=== PATIENT | male | born 1935 | race Caucasian/White ===

== ENCOUNTER → 2023-11-29 08:15 | Outpatient (REF) | payer MEDICARE, OTHER, SELFPAY | LOC: DHCBS HW 08:15 | PROVIDERS: ATTENDING PHYSICIAN Nuclear Medicine Nuclear Cardiology; FAMILY PHYSICIAN Internal Medicine | DX: I50.33 Acute on chronic diastolic (congestive) heart failure (principal); I35.0 Nonrheumatic aortic (valve) stenosis | CPT/HCPCS: 93306 ==

== ENCOUNTER 2024-02-02 23:24 | Observation (INO) | payer MEDICARE, OTHER, SELFPAY ==
[2024-02-02] VITALS (11 sets, daily range): BP systolic 128–185; BP diastolic 58–77; PULSE 61–78; BMI 31.7
[2024-02-02 17:38] LABS: % Basophils 0.7 % (0-2); % Eosinophils 1.7 % (0-6); % Immature Granulocytes 0.2 % (0-0.5); % Lymphocytes 17.7 % (20.5-51.1); % Monocytes 7.5 % (1.7-9.3); % Neutrophils 72.2 % (42.2-75.2); Absolute Basophils 0.1 10^3/uL (0-0.2); Absolute Eosinophils 0.2 10^3/uL (0-0.7); Absolute Lymphocytes 1.8 10^3/uL (1.2-3.4); Absolute Monocytes 0.8 10^3/uL (0.1-0.6); Absolute Neutrophils 7.4 10^3/uL (1.4-6.5); Hematocrit 39.5 % (39.0-52.0); Hemoglobin 11.7 g/dL (13.0-18.0); Mean Corp Hgb Conc. 29.6 g/dL (33.0-37.0); Mean Corpuscular Hgb 22.7 pg (27.0-31.0); Mean Corpuscular Volume 76.7 fL (80.0-94.0); Mean Platelet Volume 9.7 fL (7.4-10.4); Nucleated Red Blood Cells % 0 % (-); Platelet Count 294 10^3/uL (130-400); Red Blood Cell Count 5.15 10^6/uL (4.70-6.10); Red Cell Dist. Width 16.3 % (11.5-14.5); White Blood Cell Count 10.3 10^3/uL (4.8-10.8)
--- NOTE | 2024-02-02 17:45 | ED.GENMED ---
History of Present Illness
General
Chief Complaint: Fainting/Passed Out
Source: patient and family (Daughter and at the bedside)
Exam Limitations: none
Time Seen by Provider: 02/02/24 16:57
Nursing documentation reviewed up to this point in time: agreed with
Travel History
Have you had any contact with someone who has COVID-19?: No
Do you have any symptoms of coronavirus? Fever > 100 degrees, chills, cough, shortness of breath, sore throat, loss of taste or smell, muscle aches, or headache?: No
History of Present Illness
History of Present Illness:
Pleasant 88-year-old male that presents after fall that occurred at 2 AM. Patient was getting up to go to the bathroom when he fell. He is on Eliquis. He states that he has not missed a dose. He denies hitting his head or having loss of
consciousness. He landed on his left hip and his right shoulder. He was able to ambulate immediately after the fall. He went back to sleep. After awakening he started to develop pain in his left hip and right shoulder. He states that this pain
progressed throughout the day. He currently does not feel that he can ambulate. He was brought in by ambulance for evaluation. Patient denies fever, chills, nausea or vomiting. Reports no chest pain or shortness of breath. Patient is on Eliquis
for atrial fibrillation. Patient lives in a [facility] with his . They reside in a [place] and [place] community but there is no medical assistance at the [facility]. Patient wears oxygen at night. While in the emergency department he is using
oxygen. He was 88% on room air.
Past History
Past History
ED Past Medical History: Arrthythmia, Cancer, HTN, Hypercholesterolemia, IDDM and Other
ED Past Surgical History: Orthopedic (Hip replacement, knee replacement) and Urological (Cystoscopy for bladder cancer removal)
Social History
Tobacco: Non-smoker
Alcohol: None
Personal:
Living: with family
Employment: Retired
Family History
Family History: Other (Noncontributory)
Review of Systems
Review of Systems
Allergies reviewed?: Yes
Other source history: family
All Other Systems: ROS reviewed and negative except as documented in HPI and ROS
Constitutional: Reports no symptoms
EENT: Reports no symptoms
Respiratory: Reports no symptoms
Cardiac: Reports no symptoms
ABD/GI: Reports no symptoms
: Reports no symptoms
Musculoskeletal: Reports joint swelling, muscle pain, muscle stiffness and neck pain
Skin: Reports no symptoms
Neurological: Reports weakness; Denies dizzy or headache
Endocrine: Reports no symptoms
Hematologic/Lymphatic: Reports no symptoms
Psychiatric: Reports anxiety
Phy Exam
General Physical Exam
General Presentation: well appearing and mild distress
General age: appears stated age
General Skin: warm and dry
General Habitus: elderly
General Mental: alert and usual mental status
General Hydration: appears well hydrated
Cardiovascular Exam
Cardiovascular Exam: irregularly irregular
Pulmonary Exam
Pulmonary Exam: lungs clear and no respiratory distress
Gastrointestinal Exam
Gastrointestinal Exam: normal bowel sounds, non tender, no organomegaly and non distended
Neurological Exam
Neurological Exam: alert and oriented x3
Musculoskeletal Exam
Musculoskeletal Exam: full ROM, edema (1+ edema bilateral lower extremities) and neuro vasc intact
Skin Exam
Skin Exam: normal color and warm/dry
Psychiatric Exam
Psychiatric Exam: normal mood/affect
Course
Orders/Labs/Results
Orders:
Orders
02/02/24 16:45
ECG [Electrocardiogram (*1)] Urgent
Reason for Study: Syncope
EKG- Treatment ONCE
02/02/24 17:08
Cervical Spine 4 or 5 Vw [CR Cervical Spine 4 Or 5 Vw] Urgent
Comment:
Reason For Exam: fall
Hip, Left 2-3 Views [CR Hip - LT w/wo Pel 2-3 Vw*] Urgent
Comment:
Reason For Exam: fall
Include a pelvis x-ray?: Yes
Shoulder, Right 2 Views [CR Shoulder - Right Min 2 View] Urgent
Comment:
Reason For Exam: fall
02/02/24 17:09
CT Head W/o Iv Contrast Urgent
Comment:
Reason For Exam: fall on eliquis
02/02/24 17:33
Complete Blood Count/With Diff Urgent
Comprehensive Metabolic Panel Urgent
Prothrombin Time Urgent
02/02/24 19:15
0.9% Sodium Chloride 1000 ml [Nss] 1,000 ml IV BOLUS
02/02/24 20:53
Urinalysis Reflex To Culture Urgent
Date Specimen was Collected: 02/02/24
Time Specimen was Collected: 20:52
Urine Microscopic Reflex Cult Urgent
02/02/24 21:59
Orthostatic VS- Treatment ONCE
Abnormal Lab Results
02/02/24 02/02/24
17:33 20:53
Hgb 11.7 L g/dL
(13.0-18.0)
MCV 76.7 L fL
(80.0-94.0)
MCH 22.7 L pg
(27.0-31.0)
MCHC 29.6 L g/dL
(33.0-37.0)
RDW 16.3 H %
(11.5-14.5)
Absolute Neuts (auto) 7.4 H 10^3/uL
(1.4-6.5)
Absolute Monos (auto) 0.8 H 10^3/uL
(0.1-0.6)
Lymphocytes % 17.7 L %
(20.5-51.1)
PT 15.3 H Sec
(11.4-14.6)
Chloride 96 L mmol/L
(98-107)
Carbon Dioxide 33 H mmol/L
(22-30)
BUN 29 H mg/dl
(9-20)
Glucose 127 H mg/dl
(70-99)
Ur Occult Blood Reflex Trace A
(Negative)
Urine Bilirubin 1+ A
(Negative)
02/02/24 17:33
02/02/24 17:33
Vital Signs
Initial and Last Documented VS:
Initial Vital Signs
Temp Pulse Resp BP Pulse Ox
98.5 F 65 20 160/67 88
02/02/24 16:42 02/02/24 16:42 02/02/24 16:42 02/02/24 16:42 02/02/24 16:42
Last Documented Vital Signs
Temp Pulse Resp BP Pulse Ox
98.5 F 65 20 164/63 96
02/02/24 16:42 02/02/24 16:42 02/02/24 16:42 02/02/24 21:00 02/02/24 21:30
*Critical Care Note
Total Time (30-74mins, 75-104mins- exclusive of procedures): Not Applicable
Patient Management
Social determinants of health affecting care: Strong social support
Discussion with other providers: Hospitalist
Update Note
Update Note:
Vital signs are stable. Patient not hypoxic
Nursing note reviewed. I agree with nursing documentation up to this point in time.
Home Meds and allergies reviewed.
NUMBER AND COMPLEXITY OF PROBLEMS ADDRESSED AT THE ENCOUNTER
� Chronic conditions affecting care: Memory loss, hypertension, hyperlipidemia, oxygen dependent at night, frequent urination requiring multiple trips to the bathroom, UTIs, impaired vision
� Acute Exacerbation and/or Progression of Chronic Illness:
� Differential Diagnosis includes: Musculoskeletal pain, syncope, hip fracture, shoulder fracture
AMOUNT AND/OR COMPLEXITY OF DATA TO BE REVIEWED AND ANALYZED
I performed an independent evaluation of the following and my interpretation is:
EKG: EKG shows normal sinus rhythm rate of 62 with right bundle branch block present. When compared previous EKG dated September 24, 2022, he is now in sinus rhythm.
CT:
X-rays:
Ultrasound:
Laboratory Studies:
Other:
Review of other/old records:
Clinical information was obtained by an independent historian:
Prescriptions/Medications Considered but not given:
Further testing considered but not performed:
RISK OF COMPLICATIONS AND/OR MORBIDITY OR MORTALITY OF PATIENT MANAGEMENT
Social determinants of health affecting care: Good Social Support
Discussion with other providers:
Escalation of care including admission/observation vs risk of discharge considered:
CRITICAL CARE NOTE:
Total Time (exclusive of procedures):
Update:
ED Attending Note
-
Portions of this chart may have been created with voice recognition software.� Occasional wrong word or��sound alike� substitutions may have occurred due to the inherent limitations of voice recognition software.
Discharge Plan
Departure
Patient Disposition: Admit
Date of Disposition: 02/02/24
Time of Disposition: 22:19
Presentation/result/management discussed w/ accepting MD/DO: Hospitalist
Condition: Fair
Discharge Problem:
Syncope and collapse, Weakness, Acute dehydration
Prescriptions:
No Action
levothyroxine 175 MCG tablet
175 mcg PO DAILY
ergocalciferol (vitamin D2) 2,000 UNIT tablet
2,000 unit PO .2TIMES A WEEK
Patient Comments:
pt takes twice week
lisinopril 5 MG tablet
5 mg PO DAILY Qty: 30 0RF
amlodipine 5 MG tablet
5 mg PO QPM
tamsulosin 0.4 MG capsule
0.4 mg PO DAILY
hydrochlorothiazide [Microzide] 12.5 MG capsule
12.5 mg PO DAILY
Lidocaine Patch
1 patch topical PRN PRN (Reason: back pain)
Patient Comments:
patient unable to state strength of patch
metoprolol succinate 50 MG tablet extended release 24 hr
50 mg PO DAILY
Myrbetriq 25 MG tablet extended release 24 hr
25 mg PO DAILY
Eliquis 2.5 MG tablet
2.5 mg PO BID Qty: 60 0RF
amiodarone
200 mg PO DAILY
Crestor
20 mg PO DAILY
ipratropium-albuterol 0.5 mg-3 mg(2.5 mg base)/3 mL Solution For Nebulization
3 ml inhalation R Q4HPRN PRN (Reason: shortness of breath or wheezing) 14 Days Qty: 180 0RF
Rx Instructions:
PRN wheezing/bronchospasm
amoxicillin-pot clavulanate 875-125 mg Tablet
1 tab PO BID 2 Days Qty: 3 0RF
Rx Instructions:
first dose evening of 09/27/22
fenofibrate nanocrystallized 145 mg Tablet
145 mg PO QPM 30 Days Qty: 30 0RF
insulin aspart U-100 [Novolog FlexPen U-100 Insulin] 300 UNITS/3 ML insulin pen
15 unit SC AC Qty: 0 0RF
Patient Comments:
dose depends on blood sugar reading, averages 20 units
insulin glargine [Lantus Solostar U-100 Insulin] 300 UNITS/3 ML insulin pen
15 unit .Route BID Qty: 0 0RF
Patient Comments:
Pt took 18 Units of Lantus insulin
Referrals:
UNKNOWN - PT NOT,INTERVIEWE [Unknown Provider] -
Interventions
Interventions:
*Risk Screen - Suicide Last Done: 02/02/24 17:19
*General Assessment Last Done: 02/02/24 17:19
*Neglect/Abuse Screening Last Done: 02/02/24 17:19
ED- Fall Risk Assessment Last Done: 02/02/24 17:19
*ED COVID-19 Vaccine History Last Done: 02/02/24 16:42
ED- Cardiac Assessment Last Done: 02/02/24 17:19
ED- Neurological Assessment Last Done: 02/02/24 17:19
Discharge Date and Time
Print Language: LUXEMBOURG[place]
[2024-02-02 17:49] LABS: INR 1.22; PT 15.3 Sec (11.4-14.6)
[2024-02-02 17:58] LABS: ALT (SGPT) 15 U/L (0-50); AST (SGOT) 28 U/L (17-59); Albumin 4.4 g/dl (3.5-5.0); Alkaline Phosphatase 95 U/L (38-126); Blood Urea Nitrogen 29 mg/dl (9-20); Calcium 10.1 mg/dl (8.4-10.2); Carbon Dioxide 33 mmol/L (22-30); Chloride 96 mmol/L (98-107); Estimated Creatinine Clearance 51 ml/min; Glucose 127 mg/dl (70-99); Potassium 3.8 mmol/L (3.5-5.1); Sodium 140 mmol/L (135-145); Total Bilirubin 0.5 mg/dl (0.2-1.3); Total Protein 7.6 g/dl (6.3-8.2); eGFR 58.89
[2024-02-02] MEDS: NSS 1000 IV (19:38)
[2024-02-02 21:24] LABS: Urine Albumin Trace (Neg - Trace); Urine Bilirubin 1+ (Negative); Urine Character Clear (Clear); Urine Color Yellow; Urine Glucose Negative (Negative); Urine Ketone Negative (Negative); Urine Leukocyte Negative (Negative); Urine Nitrite Negative (Negative); Urine Occult Blood Trace (Negative); Urine Specific Gravity 1.015 (<1.030); Urine Urobilinogen Negative (Neg - 1+)
[2024-02-02 21:47] LABS: Urine Red Blood Cell 0-2 /HPF (0-2); Urine Squamous Cell 0-2 /LPF (Few); Urine White Cell None Seen /HPF (0-5)
--- NOTE | 2024-02-02 22:58 | HPS.HSE ---
Family Physician
-
Family Physician: Za Hardin
Chief Complaint
-
fall and cannot walk due to pain
History of Present Illness
88M lives with in a condo , independently living with HX Prx AF on Eliquis, IDDM, HTN on mutipleanti HTN meds seen at ER for evalauation of fall at home.
Fall at home in the early hours [facility] due to acute gait sufucntion
- Getting up around 2 am today for BR and had fall and landed on Lt hip an Rt shoulder
- Denied prodroma symptoms prior to fall
- Denied LOC or hitting head
- Able to ambulate immediately after fall and got back into bed and fall asllep
- In the morning when he woke up noted Lt hip and Rt shoulder pain which persist the whole day
- Associated acute on chronic gait dysfunction uses rollator and called EMS
VS: POx was 88% on RA and using NC O2
ROS:
No CP, palpitation, SoB and cough
No urinary symptoms
Medical History
Past Medical History
Past Medical History: Reports Other
Additional Past Medical History:
Arrhythmia (paroxysmal A. fib after cholecystectomy 2018,RBBB), Cancer (, bladder cancer with removal/BCG treatment), HTN, Hypercholesterolemia, Hypothyroidism, NIDDM and Other ( pancreatitis, RENO-SPARKS-bilateral hearing aids, obesity , chronic amb dys
ues rollator )
Past Surgical History: Reports Other (Orthopedic (Hip replacement, knee cartilage removal left, right hip pinning), Urological (bladder cancer with removal/BCG treatment,TURP 06/2021 ) and Other (B/L cataract surgery 2018))
Social History
Tobacco: Non-smoker
Alcohol: None
Personal:
Living: With Family
Family History
Family History: Not pertinent
Allergies / Home Medications
Allergies reflects when Allergies were last updated in [employer].
Home Medications with original date entered in [employer]
Allergy/Medication List:
Allergies
Allergy/AdvReac Type Severity Reaction Status Date / Time
cephalexin [From Keflex] Allergy Rash. Verified 02/02/24 16:44
Tolerated
amoxicillin
Home Medications
ergocalciferol (vitamin D2) 50 mcg (2,000 unit) tablet 2,000 unit PO .2TIMES A WEEK Supplement 05/30/19
levothyroxine 175 mcg tablet 175 mcg PO DAILY Thyroid 05/30/19
lisinopril 5 mg tablet 5 mg PO DAILY #30 tabs 06/06/19
amlodipine 5 mg tablet 5 mg PO QPM 06/20/21
hydrochlorothiazide 12.5 mg capsule (Microzide) 12.5 mg PO DAILY Blood pressure 06/20/21
tamsulosin 0.4 mg capsule 0.4 mg PO DAILY Urinary issue 06/20/21
Lidocaine Patch 1 patch topical PRN PRN back pain 09/23/21
metoprolol succinate 50 mg tablet,extended release 24 hr 50 mg PO DAILY Blood pressure 12/20/21
mirabegron 25 mg tablet,extended release 24 hr (Myrbetriq) 25 mg PO DAILY Urinary issue 12/20/21
apixaban 2.5 mg tablet (Eliquis) 2.5 mg PO BID #60 tabs 04/18/22
Crestor 20 mg PO DAILY High cholesterol 09/22/22
amiodarone 200 mg PO DAILY Arrhythmia 09/22/22
amoxicillin 875 mg-potassium clavulanate 125 mg tablet 1 tab PO BID 2 days #3 tabs 09/27/22
fenofibrate nanocrystallized 145 mg tablet 145 mg PO QPM 30 days #30 tabs 09/27/22
insulin aspart U-100 100 unit/mL (3 mL) subcutaneous pen (Novolog FlexPen U-100 Insulin aspart) 15 unit (0.15 mL) SC AC Diabetes #0 mL 09/27/22
insulin glargine 100 unit/mL (3 mL) subcutaneous pen (Lantus Solostar U-100 Insulin) 15 unit (0.15 mL) .Route BID Diabetes #0 mL 12/07/22
ipratropium 0.5 mg-albuterol 3 mg (2.5 mg base)/3 mL nebulization soln 3 ml inhalation R Q4HPRN PRN shortness of breath or wheezing 14 days #180 mL 09/27/22
Review of Systems
-
Constitutional: Reports No Symptoms
EENT: Reports No Symptoms
Respiratory: Reports No Symptoms
Cardiac: Reports No Symptoms
Abdomen/GI: Reports No Symptoms
: Reports No Symptoms
Musculoskeletal: Reports See HPI
Skin: Reports No Symptoms
Neurological: Reports No Symptoms
Endocrine: Reports No Symptoms
Hematologic/Lymphatic: Reports No Symptoms
Psych: Reports No Symptoms
Physical Exam
Vital Signs
Vital Signs
Temp Pulse Resp BP Pulse Ox
98.5 F 65 20 133/65 95
02/02/24 16:42 02/02/24 16:42 02/02/24 16:42 02/02/24 22:08 02/02/24 22:30
Physical Exam
General: Well Developed, Well Nourished, No Apparent Distress, Comfortable, Conversant and Other ([place] ); No Respiratory Distress
HEENT: NormoCephalic, Anicteric, Moist mucous membranes and Atraumatic
Respiratory: Clear; No Wheezes, Rales or Rhonchi
Cardiac: S1/S2 (distant ) and Regular Rhythm; No Gallop or Peripheral Edema
Breast: Deferred by me
GI: Soft, Non Tender, Non Distended and Normal Bowel Sounds
Rectal: Deferred by Provider
Genito-urinary: Deferred by me
Musculoskeletal: No Edema
Skin: Warm and Dry
Neuro: AO x 3 and Nonfocal/grossly intact
Psych: Calm; No Confused or Agitated
Laboratory Results
-
02/02/24 17:33
02/02/24 17:33
Laboratory Results
PT 15.3 Sec (11.4-14.6) H 02/02/24 17:33
INR 1.22 02/02/24 17:33
Total Bilirubin 0.5 mg/dl (0.2-1.3) 02/02/24 17:33
AST 28 U/L (17-59) 02/02/24 17:33
ALT 15 U/L (0-50) 02/02/24 17:33
Alkaline Phosphatase 95 U/L (38-126) 02/02/24 17:33
Data Reviewed
-
Diagnostic Radiology: Report Reviewed by me
CT Scan: Report Reviewed by me
Medical Tests (Nuc Med, Echo, EKG etc): Report Reviewed by me
Lab Data: Labs Reviewed by me
Old Records: Reviewed
Impression/Plan
-
Reviewed VS: HR65 BP 165/63 - 185/75
Data
nl WCC
Hgn 11.7 -bl is 13s-14s
INR 1.22
Cl 96
CO2 33
BUN 29
Cr 1.2 bl is 1.3
eGFR 59s - bl is 53s c/w CKD3a
Pending pro BNP
Pending TPNI
NEG UA
Pending Covid Ag
Pending CXR
HCT: No acute intracranial abnormality noted
Rt Shoulder XR:
Moderate degenerative changes of the right shoulder without evidence for acute fracture or dislocation.
Lt Hip XR:
Mild to moderate degenerative changes of the left hip without evidence for acute fracture or dislocation. Diffuse demineralization. Mild degenerative changes of the pubis symphysis, right hip, bilateral sacroiliac joints and partially visualized
lower lumbar spine. Soft tissues are grossly unremarkable.
Cx spine XR:
Moderate to severe multilevel degenerative changes of the cervical spine without evidence for acute fracture.
EKG
NORMAL SINUS RHYTHM
RIGHT BUNDLE BRANCH BLOCK
POSSIBLE INFERIOR INFARCT , AGE UNDETERMINED
ABNORMAL ECG
WHEN COMPARED WITH ECG OF 24-SEP-2022 22:05,
SINUS RHYTHM HAS REPLACED ATRIAL FIBRILLATION
11/29/23 ECHO
LVEF 55-60
Stage II DD
Nl RV size and function
Mild peak/mean gradients of 33/24 mmHg, respectively. The aortic valve 2.1 cm. Aortic valve gradients are now higher, previously 25/13 mmHg.
Mild aortic regurgitation.
Estimated pulmonary artery pressure of 27 mmHg assuming a right atrial pressure of 3 mmHg.
Ascending aortic is more dilated, previously 4.2 cm
Last hospitalist admission: 09/22/22 - 09/27/22
DXs: Hypoxemic RF secondary to CAP, Paroxysmal atrial fibrillation.
ASSESSMENT & PLAN
Pending Rx reconciliation
Fall : denied LOC
Acute gait dysfunction due to Rt shoulder pain and Lt Hip pain s/p Fall
No XR evidence of acute pathology ib Rt shoulder , Lt hips and Cx spine
NEG HCT
HX chronic ambulatory dysfunction: Uses Rollator at baseline
- PT/OT
- PRN analgesia
- Fall precaution
Acute on chr Hypoxic RI - Pox 88% on RA upon arrival DDX: Atelectasis
On Home O2 HS
Denied respiratory symptoms
Afebrile, normotensive
- check COVID/influenza
- check proBNP and TPNI
- pending CXR
- O2 to keep POx > 93
Mild with interval increased in aortic valve gradients are now higher as off Nov 2023
- Symptomatic or what not
- DCA card consult for AM
In NSR for HX Paroxysmal AF after cholecystectomy 2019,
- stable
- on Amiodarone and Eliquis
IDDM2 with admission BG 127
- on CLERICAL OFFICE Lantus and NovoLog
- add ISS low
Systolic HTN noted
Primary HTN
- On amlodipine, lisinopril, HCTZ and Metoprolol sux
- Observe BP
HLD
- cont Statin
Hypothyroidism
- on LT4
Bladder cancer hx/urinary incontinence HX
HX Cystoscopy for bladder cancer removal, BCG treatment and TURP 06/2021
- cont. Flomax ,Myrbetriq
RENO-SPARKS
�bilateral hearing aids
Obesity due to excess calorie consumption�BMI 31.4 kg
1800 healthy heart diet, weight loss recommended
DVT Px: CLERICAL OFFICE Eliquis
Code: Full code
Obs TLM
[2024-02-02 23:39] LABS: COVID-19 Antigen Negative (Negative)
[2024-02-02 23:46] LABS: NT-proBNP 384 pg/ml; Troponin I < 0.012 ng/ml
[2024-02-03] VITALS (9 sets, daily range): BP systolic 115–163; BP diastolic 43–72; PULSE 53–63; O2SAT 92; BMI 31.7; BMI 31.6
[2024-02-03 00:53] LABS: Glucose - Point of Care 242 mg/dl (70-99)
[2024-02-03 05:12] LABS: % Eosinophils 2.7 % (0-6); % Immature Granulocytes 0.5 % (0-0.5); % Lymphocytes 21.5 % (20.5-51.1); % Monocytes 9.5 % (1.7-9.3); % Neutrophils 64.8 % (42.2-75.2); Absolute Basophils 0.1 10^3/uL (0-0.2); Absolute Eosinophils 0.2 10^3/uL (0-0.7); Absolute Lymphocytes 1.7 10^3/uL (1.2-3.4); Absolute Monocytes 0.8 10^3/uL (0.1-0.6); Absolute Neutrophils 5.1 10^3/uL (1.4-6.5); Hematocrit 33.1 % (39.0-52.0); Hemoglobin 9.6 g/dL (13.0-18.0); Mean Corpuscular Hgb 22.7 pg (27.0-31.0); Mean Corpuscular Volume 78.4 fL (80.0-94.0); Mean Platelet Volume 10.4 fL (7.4-10.4); Nucleated Red Blood Cells % 0 % (-); Platelet Count 246 10^3/uL (130-400); Red Blood Cell Count 4.22 10^6/uL (4.70-6.10); Red Cell Dist. Width 16.2 % (11.5-14.5); White Blood Cell Count 7.9 10^3/uL (4.8-10.8)
[2024-02-03] MEDS: SYNTHROID 175 MCG PO (05:21)
[2024-02-03 05:37] LABS: ALT (SGPT) 12 U/L (0-50); AST (SGOT) 21 U/L (17-59); Alkaline Phosphatase 66 U/L (38-126); Blood Urea Nitrogen 27 mg/dl (9-20); Calcium 8.7 mg/dl (8.4-10.2); Carbon Dioxide 31 mmol/L (22-30); Chloride 100 mmol/L (98-107); Estimated Creatinine Clearance 55 ml/min; Glucose 200 mg/dl (70-99); HDL Cholesterol 33 mg/dl; LDL Cholesterol, Calculated 24 mg/dl; Potassium 3.7 mmol/L (3.5-5.1); Sodium 138 mmol/L (135-145); Total Bilirubin 0.6 mg/dl (0.2-1.3); Total Cholesterol 81 mg/dl (50-199); Total Protein 5.8 g/dl (6.3-8.2); Triglyceride 122 mg/dl (10-149); Very Low Density Lipoprotein 24 mg/dl (0-30); eGFR > 60.00
[2024-02-03 05:41] LABS: Troponin I < 0.012 ng/ml
[2024-02-03 07:02] LABS: Glucose - Point of Care 198 mg/dl (70-99)
[2024-02-03] MEDS: ZESTRIL 5 MG PO (08:21)
[2024-02-03] MEDS: ELIQUIS 2.5 MG PO ×2 (08:21→20:00)
[2024-02-03] MEDS: MYRBETRIQ EXTENDED RELEASE 25 MG PO (08:21)
[2024-02-03] MEDS: TOPROL XL 50 MG PO (08:21)
[2024-02-03] MEDS: CRESTOR 20 MG PO (08:22)
[2024-02-03] MEDS: PACERONE 200 MG PO (08:22)
[2024-02-03] MEDS: FLOMAX 0.400000000000000022 MG PO (08:22)
[2024-02-03] MEDS: LEVEMIR 0.200000000000000011 UNITS SC ×2 (08:44→21:28)
[2024-02-03] MEDS: NOVOLOG FLEXPEN-LOW RESISTANCE 1 UNITS SC (08:44)
--- NOTE | 2024-02-03 09:02 | CON.CAR ---
Consultation
Consultation Request
Date/Time Consultation Requested: February 03, 2024
Date/Time Consultation Performed: February 03, 2024
Requesting Provider: Hospitalist
Performing Provider: Veronica
Reason for Consultation: Fall
Medical History
-
Chief Complaint: Fall
History of Present Illness:
88-year-old gentleman who presents after getting up from a sitting to standing position and while walking to the bathroom had a fall. Mildly dizzy but no loss of consciousness. He is not been drinking enough fluids at home. He has a history of
moderate aortic stenosis. He describes the fall to 'clumsiness '. And there was no loss of consciousness. He has no bradycardia or tachycardia on his monitor here. He does carry history of paroxysmal atrial fibrillation chronic diastolic heart
failure aortic stenosis old myocardial infarct right bundle branch block stage III chronic kidney disease and essential hypertension. He does live independently.
Past Medical History
Past Medical History: Arrhythmias, CAD, CHF, HTN and Valvular Disease
Social History
Tobacco: Non-Smoker
Alcohol: None
Drug: None
Personal: Other
Living: Other (lives independently)
Employment: Retired
Family History
Family History: Reviewed & Not Pertinent
Allergies / Home Medications
Allergy/AdvReac Type Severity Reaction Status Date / Time
cephalexin [From Keflex] Allergy Rash. Verified 02/02/24 16:44
Tolerated
amoxicillin
�Medication �Instructions �Recorded �Confirmed �Type
ergocalciferol (vitamin D2) 50 mcg 2,000 unit PO .2TIMES A WEEK 05/30/19 02/03/24 History
(2,000 unit) tablet Supplement
levothyroxine 175 mcg tablet 175 mcg PO DAILY Thyroid 05/30/19 02/03/24 History
lisinopril 5 mg tablet 5 mg PO DAILY #30 tabs 06/06/19 02/03/24 Rx
amlodipine 5 mg tablet 5 mg PO QPM 06/20/21 02/03/24 History
tamsulosin 0.4 mg capsule 0.4 mg PO DAILY Urinary issue 06/20/21 02/03/24 History
metoprolol succinate 50 mg 25 mg PO DAILY Blood pressure 12/20/21 02/03/24 History
tablet,extended release 24 hr
mirabegron 25 mg tablet,extended 25 mg PO DAILY Urinary issue 12/20/21 02/03/24 History
release 24 hr (Myrbetriq)
apixaban 2.5 mg tablet (Eliquis) 2.5 mg PO BID #60 tabs 04/18/22 02/03/24 Rx
Crestor 20 mg PO QHS High cholesterol 09/22/22 02/03/24 History
amiodarone 200 mg PO DAILY Arrhythmia 09/22/22 02/03/24 History
furosemide 20 mg tablet 20 mg PO Q OTHER DAY 02/02/24 02/03/24 History
insulin aspart U-100 100 unit/mL 20 unit SC AC Diabetes 02/02/24 02/03/24 History
(3 mL) subcutaneous pen (Novolog
FlexPen U-100 Insulin aspart)
insulin glargine 100 unit/mL (3 20 unit .Route BID Diabetes 02/02/24 02/03/24 History
mL) subcutaneous pen (Lantus
Solostar U-100 Insulin)
primidone 50 mg tablet 50 mg PO HS 02/02/24 02/03/24 History
Review of Systems
-
All other systems: Negative unless noted
Physical Exam
Vital Signs
Temp Pulse Resp BP Pulse Ox
98.4 F 63 22 163/72 93
02/03/24 07:00 02/03/24 08:22 02/03/24 07:00 02/03/24 08:22 02/03/24 07:00
Lab Results
02/03/24 04:37
02/03/24 04:37
Troponin I < 0.012 ng/ml 02/03/24 04:37
Ipu-N-Jxrriitdgzz Pept 384 pg/ml 02/02/24 23:14
Physical Exam
General: Well Developed and Well Nourished
HEENT: Normocephalic
Respiratory: Clear
Cardiac: S1/S2, Regular Rhythm and Murmur
Breast: Deferred by me
GI: Soft, Non Tender, Non Distended and Flat
Rectal: Deferred by Provider
Genito-urinary: Clear Urine
Musculoskeletal: No Clubbing, No Cyanosis and No Edema
Skin: Warm and Dry
Neuro: Awake, Alert and Oriented
Hematologic/Lymphatic: No Lymphadenopathy
Psych: Calm
Impression / Plan
-
Impression:
Fall
Moderate aortic stenosis
Paroxysmal atrial fibrillation on oral anticoagulation
Chronic diastolic heart failure
Right bundle branch block
Diabetes mellitus type 2
Stage III chronic kidney disease
Essential hypertension
Mixed hyperlipidemia
Sleep apnea
Chronic amiodarone use
Recommendations:
His fall appears to be mechanical in nature and not from either bradycardia or tachyarrhythmia. He has not had any bradycardia or tachyarrhythmias on telemetry. Given his chronic oral anticoagulation if he were to have repetitive falls he could be
considered for watchman implantation but at this time given lack of traumatic fall and apparent orthostasis and volume depletion on laboratory values and examination would recommend and encourage increased p.o. hydration particularly in the morning
with caffeine reduction and alcohol limitation. Will continue his Eliquis at current dosing and he had recent echocardiogram demonstrating relatively stable valve disease and would not repeat that testing while inpatient. It would be reasonable to
consider PT OT evaluation for strength and balance training.
Data Reviewed
-
EKG: Tracing Personally Visualized and interpreted
Radiology: Image Personally Visualized and interpreted
Labs: Labs Reviewed by me
Old Records: Reviewed
--- NOTE | 2024-02-03 10:35 | W.PN.HOSP.TC ---
Today's Communication/Plan
-
cxr pending
check ortho
pt/ot
wean o2
Assessment / Plan
Assessment / Plan
Mechanical fall
Acute gait dysfunction due to Rt shoulder pain and Lt Hip pain s/p Fall
No XR evidence of acute pathology ib Rt shoulder , Lt hips and Cx spine
NEG HCT
HX chronic ambulatory dysfunction: Uses Rollator at baseline
- PT/OT
- PRN analgesia
- Fall precaution
Acute on chr Hypoxic RI - Pox 88% on RA upon arrival DDX: Atelectasis
Nocturnal hypoxemia
Denied respiratory symptoms
Afebrile, normotensive
-COVID and influenza negative.
-CXR pending
-wean o2
-IS ordered
Mild with interval increased in aortic valve gradients are now higher as off Nov 2023
-OP f/u.
Paroxysmal AF
- stable
- on Amiodarone and Eliquis
IDDM2 with admission BG 127
- on FOUNDER CHAIRMAN AND CHIEF CREATIVE OFFICER Lantus and NovoLog restarted
- add ISS low
Systolic HTN noted
Primary HTN
- On amlodipine, lisinopril, HCTZ and Metoprolol sux
- Observe BP . Check orthostatics
HLD
- cont Statin
Hypothyroidism
- on LT4
Bladder cancer hx/urinary incontinence HX
HX Cystoscopy for bladder cancer removal, BCG treatment and TURP 06/2021
- cont. Flomax ,Myrbetriq
[place]
�bilateral hearing aids
Obesity due to excess calorie consumption�BMI 31.4 kg
1800 healthy heart diet, weight loss recommended
DVT Px: FOUNDER CHAIRMAN AND CHIEF CREATIVE OFFICER Eliquis
Code: Full code
Anticipated Discharge: Within 24 hours
Subjective/Interval History
-
Date of Service: February 03, 2024
states of mild R shoulder pain due to fall
on oxygen
denies cp or sob.
Objective Data
-
Labs:
Laboratory Results
02/03/24
04:37
WBC 7.9
Hgb 9.6 L
Hct 33.1 L
Plt Count 246
Sodium 138
Potassium 3.7
Chloride 100
Carbon Dioxide 31 H
BUN 27 H
Creatinine 1.1
Glucose 200 H
Calcium 8.7
Total Bilirubin 0.6
AST 21
ALT 12
Alkaline Phosphatase 66
Vital Signs:
Vital Signs
Temp Pulse Resp BP Pulse Ox
98.4 F 63 22 163/72 93
02/03/24 07:00 02/03/24 08:22 02/03/24 07:00 02/03/24 08:22 02/03/24 07:00
I&O
02/02/24 02/03/24 02/04/24
06:59 06:59 06:59
Output Total 500 / 500
Balance -500 / -500
Physical Exam
-
General: Well Developed and No Apparent Distress
HEENT: Normocephalic, Atraumatic, Moist Mucous Membranes and Oxygen
Respiratory: Clear to Auscultation
Cardiac: Regular Rhythm and S1/S2; Negative Murmur, Rub or Gallop
GI: Soft, Nontender, Nondistended and Normal Bowel Sounds; Negative Organomegaly
Rectal: Deferred by Provider
Musculoskeletal: No Clubbing, No Cyanosis and No Edema
Skin: Negative Rash
Neuro: Awake and Nonfocal/Grossly Intact
Psych: Calm
Data Reviewed
-
Total Time Spent with Patient (in minutes): 55
[2024-02-03 11:34] LABS: Troponin I < 0.012 ng/ml
[2024-02-03] MEDS: NOVOLOG FLEXPEN 10 UNITS SC ×2 (11:55→16:54)
[2024-02-03] MEDS: NOVOLOG FLEXPEN-LOW RESISTANCE 5 UNITS SC (11:58)
[2024-02-03 12:02] LABS: Glucose - Point of Care 342 mg/dl (70-99)
--- NOTE | 2024-02-03 13:18 | CM ---
Addendum entered by Cathie Taylor 02/03/24 14:39:
Patient daughter not here to review form patient continues to want to wait to review with family.
Original Note:
Patient seen at bedside. Patient states that he lives with his in a condo and has a flight of stairs to his bedroom. Patient states that he has a walker and uses the [facility] in [place] for short term scripts and the [facility] for
usp. Patient has been in a SNF more than 5 years ago when he lived in [place]. Patient stated that his daughter would be here later today. OBS/BOWLES form provided to patient and CM will attempt to return to review with patient daughter.
Patient seen by PT and they are recommending SNF. Patient currently OBS and would have to pay privately for SNF stay. Patient is also covered by [employer]. CM will continue to follow for discharge planning needs.
Plan; home with VN vs SNF pending assessments.
--- NOTE | 2024-02-03 13:50 | PTCARENOTE ---
Reviewed medications with patient's daughter. Toprol should be decreased to 25 mg po daily and he takes it in the evening. MD notified. Dose reduced - timing should be evening tomorrow. Watch heart rate and maintain tele. Primidone 50 mg he also
takes in the evening. MD notified and ordered. First dose to be taken this evening.
[2024-02-03 14:43] LABS: Glucose - Point of Care 318 mg/dl (70-99)
[2024-02-03 16:15] LABS: Glucose - Point of Care 233 mg/dl (70-99)
[2024-02-03] MEDS: NOVOLOG FLEXPEN-LOW RESISTANCE 2 UNITS SC (16:54)
[2024-02-03] MEDS: NORVASC 5 MG PO (18:08)
[2024-02-03] MEDS: TRICOR 145 MG PO (18:08)
[2024-02-03 21:16] LABS: Glucose - Point of Care 255 mg/dl (70-99)
[2024-02-03] MEDS: MYSOLINE 50 MG PO (21:27)
[2024-02-04 00:09] VITALS: BP 120/43
[2024-02-04 03:25] VITALS: BP 118/46
[2024-02-04] MEDS: SYNTHROID 175 MCG PO (05:11)
[2024-02-04 06:00] VITALS: BMI 32.1
[2024-02-04 07:00] VITALS: BP 149/55
[2024-02-04] MEDS: NOVOLOG FLEXPEN 10 UNITS SC ×2 (08:27→11:29)
[2024-02-04] MEDS: FLOMAX 0.400000000000000022 MG PO (08:28)
[2024-02-04] MEDS: LEVEMIR 0.200000000000000011 UNITS SC (08:28)
[2024-02-04] MEDS: NOVOLOG FLEXPEN-LOW RESISTANCE 1 UNITS SC (08:28)
[2024-02-04] MEDS: ZESTRIL 5 MG PO (08:28)
[2024-02-04] MEDS: MYRBETRIQ EXTENDED RELEASE 25 MG PO (08:28)
[2024-02-04] MEDS: ELIQUIS 2.5 MG PO (08:28)
[2024-02-04] MEDS: CRESTOR 20 MG PO (08:28)
[2024-02-04] MEDS: PACERONE 200 MG PO (08:30)
[2024-02-04 08:31] LABS: Glucose - Point of Care 196 mg/dl (70-99)
[2024-02-04 09:15] VITALS: PULSE 51; O2SAT 93
--- NOTE | 2024-02-04 09:17 | W.PN.HOSP.TC ---
Today's Communication/Plan
-
Ok for DC today with home VN
Assessment / Plan
Assessment / Plan
Mechanical fall
Acute gait dysfunction due to Rt shoulder pain and Lt Hip pain s/p Fall
No XR evidence of acute pathology ib Rt shoulder , Lt hips and Cx spine
NEG HCT
HX chronic ambulatory dysfunction: Uses Rollator at baseline
- PT/OT --> discussed with OT today; patient did well and OK for DC with VN. patient wants to go home
- PRN analgesia
- Fall precaution
Acute on chr Hypoxic RI - Pox 88% on RA upon arrival DDX: Atelectasis
Nocturnal hypoxemia
Denied respiratory symptoms
Afebrile, normotensive
-COVID and influenza negative.
-CXR without acute event
-stable on room air
Mild with interval increased in aortic valve gradients are now higher as off Nov 2023
-OP f/u.
Paroxysmal AF
- stable
- on Amiodarone and Eliquis
IDDM2 with admission BG 127
- on TUFTING SUPERVISOR Lantus and NovoLog restarted
- add ISS low
Systolic HTN noted
Primary HTN
- On amlodipine, lisinopril, HCTZ and Metoprolol sux
- Observe BP . Check orthostatics
HLD
- cont Statin
Hypothyroidism
- on LT4
Bladder cancer hx/urinary incontinence HX
HX Cystoscopy for bladder cancer removal, BCG treatment and TURP 06/2021
- cont. Flomax ,Myrbetriq
[place]
�bilateral hearing aids
Obesity due to excess calorie consumption�BMI 31.4 kg
1800 healthy heart diet, weight loss recommended
DVT Px: TUFTING SUPERVISOR Eliquis
Code: Full code
Anticipated Discharge: Today
Subjective/Interval History
-
Date of Service: February 04, 2024
he is feeling well
now stating he wants to go home
he is on room air
Objective Data
-
Labs:
Laboratory Results
02/04/24
09:15
WBC Pending
Hgb Pending
Hct Pending
Plt Count Pending
Sodium Pending
Potassium Pending
Chloride Pending
Carbon Dioxide Pending
BUN Pending
Creatinine Pending
Glucose Pending
Calcium Pending
Vital Signs:
Vital Signs
Temp Pulse Resp BP Pulse Ox
98.6 F 62 18 149/55 96
02/04/24 07:00 02/04/24 08:30 02/04/24 07:00 02/04/24 07:00 02/04/24 08:20
I&O
02/03/24 02/04/24 02/05/24
06:59 06:59 06:59
Intake Total 900 / 900
Output Total 500 / 500 800 / 800
Balance -500 / -500 100 / 100
Review of Systems
-
History Source: Patient
All other systems: Reviewed and negative
Physical Exam
-
General: Well Developed and No Apparent Distress
HEENT: Normocephalic, Atraumatic, Moist Mucous Membranes and Oxygen
Respiratory: Clear to Auscultation
Cardiac: Regular Rhythm, S1/S2 and Murmur; Negative Gallop
GI: Soft, Nontender, Nondistended and Normal Bowel Sounds; Negative Organomegaly
Rectal: Deferred by Provider
Musculoskeletal: No Clubbing, No Cyanosis, No Edema and Other (can lift right arm without issue)
Skin: Negative Rash
Neuro: Awake and Nonfocal/Grossly Intact
Psych: Calm
Data Reviewed
-
Diagnostic Radiology: Report Reviewed by me
Labs: Labs Reviewed by me
--- NOTE | 2024-02-04 10:11 | W.PN.CARDCBS ---
Today's Communication / Plan
-
Outpatient cardiac follow-up
Impression / Plan
-
.
Impression:
Fall
Moderate aortic stenosis
Paroxysmal atrial fibrillation on oral anticoagulation
Chronic diastolic heart failure
Right bundle branch block
Diabetes mellitus type 2
Stage III chronic kidney disease
Essential hypertension
Mixed hyperlipidemia
Sleep apnea
Chronic amiodarone use
Plan:
He remains stable and fall appeared mechanical and he does not routinely fall.
Discussed conservative measures
No need for inpt cardiac testing.
Outpt cardiac follow up.
Cont Eliquis
Discussed with primary service and nursing.
Stable for d/c.
Progress Note - [employer]
Subjective
Date of Service: February 04, 2024
Pt seen and examined. No complaints. No chest pain or shortness of breath.
Objective
Labs:
02/04/24 09:15
Labs
Hgb Cancelled 02/04/24 09:15
Hct Cancelled 02/04/24 09:15
Plt Count Cancelled 02/04/24 09:15
PT 15.3 Sec (11.4-14.6) H 02/02/24 17:33
INR 1.22 02/02/24 17:33
Sodium Cancelled 02/04/24 09:15
Potassium Cancelled 02/04/24 09:15
BUN Cancelled 02/04/24 09:15
Creatinine Cancelled 02/04/24 09:15
Glucose Cancelled 02/04/24 09:15
Troponins
02/02/24 02/03/24 02/03/24
23:14 04:37 10:54
Troponin I < 0.012 < 0.012 < 0.012
Vital Signs and I&O:
Vital Signs
Temp Pulse Resp BP Pulse Ox
98.6 F 62 18 149/55 96
02/04/24 07:00 02/04/24 08:30 02/04/24 07:00 02/04/24 07:00 02/04/24 08:20
Vital Signs
Temp Pulse Resp BP Pulse Ox
98.6 F 62 18 149/55 96
02/04/24 07:00 02/04/24 08:30 02/04/24 07:00 02/04/24 07:00 02/04/24 08:20
Intake & Output
02/02/24 02/03/24 02/04/24 02/05/24
06:59 06:59 06:59 06:59
Intake Total 900 / 900
Output Total 500 / 500 800 / 800
Balance -500 / -500 100 / 100
Physical Exam
Physical Exam
General: No acute distress, AAOX3
Neck: Negative JVD
Heart: Regular, Negative S3 positive S1/S2, Negative S4, No murmur
Lungs: CTA b/l, negative wheezes/rales/rhonchi
Abd: Positive BS, NT/ND, neg rebound/rigidity/guarding
Ext: Negative cyanosis/clubbing/edema
Neuro: nonfocal
[2024-02-04 10:24] LABS: Hemoglobin 10.7 g/dL (13.0-18.0)
[2024-02-04 10:38] LABS: Glucose - Point of Care 306 mg/dl (70-99)
--- NOTE | 2024-02-04 10:53 | W.DS.TRANS ---
DC Summary - Marketing Assistant
-
Discharge Instructions:
Discharge Diagnosis/Procedures mechanical fall; hypoxic respiratory
insufficiency secondary to atelectasis
Diet Diabetic, Carb Controlled
Activity As tolerated
Driving Restrictions As prior to admission
Bathing Restrictions None
Blood Work BMP on Sunday02/08/24
Other Services PT,OT,VN
Specialty Instructions Weigh Daily
Instructions:
Stand-Alone Forms:
Changes to Home Medications: No
Discharge Medications:
DC Medications w/original date entered in [facility]
ergocalciferol (vitamin D2) 50 mcg (2,000 unit) tablet 2,000 unit PO .2TIMES A WEEK Supplement 05/30/19
levothyroxine 175 mcg tablet 175 mcg PO DAILY Thyroid 05/30/19
lisinopril 5 mg tablet 5 mg PO DAILY #30 tabs 06/06/19
amlodipine 5 mg tablet 5 mg PO QPM Blood Pressure 06/20/21
tamsulosin 0.4 mg capsule 0.4 mg PO DAILY Urinary issue 06/20/21
metoprolol succinate 50 mg tablet,extended release 24 hr 25 mg PO DAILY Blood pressure 12/20/21
mirabegron 25 mg tablet,extended release 24 hr (Myrbetriq) 25 mg PO DAILY Urinary issue 12/20/21
apixaban 2.5 mg tablet (Eliquis) 2.5 mg PO BID #60 tabs 04/18/22
Crestor 20 mg PO QHS High cholesterol 09/22/22
amiodarone 200 mg PO DAILY Arrhythmia 09/22/22
furosemide 20 mg tablet 20 mg PO Q OTHER DAY Blood Pressure 02/02/24
insulin aspart U-100 100 unit/mL (3 mL) subcutaneous pen (Novolog FlexPen U-100 Insulin aspart) 20 unit SC AC Diabetes 02/02/24
insulin glargine 100 unit/mL (3 mL) subcutaneous pen (Lantus Solostar U-100 Insulin) 20 unit .Route BID Diabetes 02/02/24
primidone 50 mg tablet 50 mg PO HS TREMORS 02/02/24
acetaminophen 325 mg tablet 650 mg (2 x 325 mg) PO Q4HPRN PRN mild pain/LARSEN/temp> 100.4F #0 tabs 02/04/24
Home Medication Changes
Pending Results: No
[2024-02-04 11:00] VITALS: BP 121/63; BP 125/56; BP 125/60; BP 126/61; PULSE 50; PULSE 56; PULSE 61
[2024-02-04] MEDS: NOVOLOG FLEXPEN-LOW RESISTANCE 4 UNITS SC (11:29)
--- NOTE | 2024-02-04 13:37 | W.DCSUMMARY ---
Discharge Summary
Discharge Data
Date of Admission: 02/02/24
Date of Discharge: 02/04/24
-
Pending Results: No
Hospital Course
Discharging Physician : Dr. Mariana Curiel
Disposition : Home with Home Health
Primary care physician : Dr. Za Hardin
Principal Discharge diagnosis : mechanical fall, hypoxic respiratory insufficiency
Hospital Course :
Mr. Noel Shell is a 88 yo man with hx paroxysmal afib on Eliquis, IDDM, HTN presents to the ER after a mechanical fall with resultant left hip and right shoulder pain. Triage vitals notable for SpO2 88% on room air.
Patient was admitted to medicine with cardiology consulting given history of . Fall appeared to be 2/2 mechanical in nature and not related to arrhythmia or valve. Telemetry monitoring without arrhythmias. OK to continue Eliquis. He is
maintained on home lasix dosing and instructed to move very slowly when going from a laying to standing position.
Hypoxic resp insufficiency resolved on its own. Likely component of atelectasis. O2 sats > 90% on room air prior to discharge.
He is discharged home with HH. No changes made to home medication regimen. He will follow up closely with outpatient physicians.
Time spent on discharge was 32 minutes.
Important imaging findings :
RIGHT SHOULDER X-RAY
IMPRESSION:
Moderate degenerative changes of the right shoulder without evidence for acute fracture or dislocation.
LEFT SHOULDER X-RAY
IMPRESSION:
Mild to moderate degenerative changes of the left hip without evidence for acute fracture or dislocation. Diffuse demineralization. Mild degenerative changes of the pubis symphysis, right hip, bilateral sacroiliac joints and partially visualized
lower lumbar spine. Soft tissues are grossly unremarkable.
CERVICAL SPINE X-RAY
IMPRESSION:
Moderate to severe multilevel degenerative changes of the cervical spine without evidence for acute fracture.
HEAD CT
IMPRESSION:
No acute intracranial abnormality noted.
CXR
IMPRESSION:
No acute cardiopulmonary process.
Procedure findings :
Discharge Plan
-
Patient Disposition: Home with Home Care
Discharge Diagnosis/Procedures: mechanical fall; hypoxic respiratory insufficiency secondary to atelectasis
Diet: Diabetic, Carb Controlled
Activity: As tolerated
Driving Restrictions: As prior to admission
Bathing Restrictions: None
Blood Work: BMP on Sunday02/08/24
Other Services: VN, PT and OT
Specialty Instructions: Weigh Daily- Call MD for wt gain/loss 3 lbs overnight/5 lbs in 1 week
Activity Restrictions/Additional Instructions:
Please use a standard walker at nighttime (not rollator).
When going from laying to standing position, make sure you move slowly. Stay in seating position for 2 minutes. Then go to standing position with walker in front of you and don't start walking for another 2 minutes. If you feel dizzy then sit
down.
Referrals:
Jem Chance DO [Active] - in two to three weeks
Za Hardin MD [Family Provider] - in less than 1 week
Prescriptions:
New
acetaminophen 325 mg Tablet
650 mg PO Q4HPRN PRN (Reason: mild pain/LARSEN/temp> 100.4F) Qty: 0 0RF
Continued
levothyroxine 175 MCG tablet
175 mcg PO DAILY
ergocalciferol (vitamin D2) 2,000 UNIT tablet
2,000 unit PO .2TIMES A WEEK
Patient Comments:
pt takes twice week
lisinopril 5 MG tablet
5 mg PO DAILY Qty: 30 0RF
amlodipine 5 MG tablet
5 mg PO QPM
tamsulosin 0.4 MG capsule
0.4 mg PO DAILY
metoprolol succinate 50 MG tablet extended release 24 hr
25 mg PO DAILY
Rx Instructions:
AT 1600
Myrbetriq 25 MG tablet extended release 24 hr
25 mg PO DAILY
Eliquis 2.5 MG tablet
2.5 mg PO BID Qty: 60 0RF
amiodarone
200 mg PO DAILY
Crestor
20 mg PO QHS
primidone 50 mg Tablet
50 mg PO HS
furosemide 20 mg Tablet
20 mg PO Q OTHER DAY
insulin aspart U-100 [Novolog FlexPen U-100 Insulin] 300 UNITS/3 ML insulin pen
20 unit SC AC
Patient Comments:
dose depends on blood sugar reading, averages 20 units
insulin glargine [Lantus Solostar U-100 Insulin] 300 UNITS/3 ML insulin pen
20 unit .Route BID
Patient Comments:
Pt took 18 Units of Lantus insulin
Discharge Orders:
Discharge Patient (As Directed); Ordered 02/04/24
Ordered By: Mariana Curiel
Discharge Date and Time
Print Language: FRENCH
--- NOTE | 2024-02-04 13:43 | VNURNOTE ---
Home Health Liaison met with patient at 1230 to discuss [facility] nurse/therapy, visits, schedule and homebound status. Patient is agreeable and understands that visits at home will be 2-3 x per week to assess and teach medical management.
VN brochure provided with contact information. Patient is aware that VN will contact him for start of care in 1-2 days after discharge from .
[facility] referral completed in [facility].
Call to patient's daughter Susi at his request to discuss above.
--- NOTE | 2024-02-04 16:23 | CM ---
MD entered order for discharge.
Spoke with Susi dgt reviewed PT Ot with her and she said that pt is back to his base line and she wants to take him home with VN
[facility] liaison notified of dc.
Susi said she is going to be staying with her parents.
She was given day care provider list also as requested .
Susi drove him home.
PLAN Home with [facility]
== END 2024-02-04 13:43 | disposition home health service (06) ==
LOC: 4 EAST ACU 23:24
PROVIDERS: Clinical Nurse Specialist Family Health; ADMITTING PHYSICIAN Internal Medicine; ATTENDING PHYSICIAN Student in an Organized Health Care Education/Training Program; CONSULT PHYSICIAN Internal Medicine Cardiovascular Disease; EMERGENCY PHYSICIAN Student in an Organized Health Care Education/Training Program; FAMILY PHYSICIAN Internal Medicine
DX: R26.9 Unspecified abnormalities of gait and mobility (principal); R09.02 Hypoxemia; J98.11 Atelectasis; R06.89 Other abnormalities of breathing; R55 Syncope and collapse; M19.011 Primary osteoarthritis, right shoulder; M25.552 Pain in left hip; M47.816 Spondylosis without myelopathy or radiculopathy, lumbar region; M47.812 Spondylosis without myelopathy or radiculopathy, cervical region; I13.0 Hypertensive heart and chronic kidney disease with heart failure and stage 1 through stage 4 chronic kidney disease, or unspecified chronic kidney disease; E78.2 Mixed hyperlipidemia; E11.22 Type 2 diabetes mellitus with diabetic chronic kidney disease; I48.0 Paroxysmal atrial fibrillation; E66.09 Other obesity due to excess calories; R35.0 Frequency of micturition; I25.10 Atherosclerotic heart disease of native coronary artery without angina pectoris; I35.0 Nonrheumatic aortic (valve) stenosis; H53.8 Other visual disturbances; E03.9 Hypothyroidism, unspecified; I50.32 Chronic diastolic (congestive) heart failure; N18.30 Chronic kidney disease, stage 3 unspecified; I48.20 Chronic atrial fibrillation, unspecified; I25.2 Old myocardial infarction; G47.30 Sleep apnea, unspecified; E78.5 Hyperlipidemia, unspecified; E86.0 Dehydration; W01.0XXA Fall on same level from slipping, tripping and stumbling without subsequent striking against object, initial encounter; Y93.01 Activity, walking, marching and hiking; Y92.003 Bedroom of unspecified non-institutional (private) residence as the place of occurrence of the external cause; Z79.890 Hormone replacement therapy; Z87.440 Personal history of urinary (tract) infections; Z79.4 Long term (current) use of insulin; Z79.01 Long term (current) use of anticoagulants; Z85.51 Personal history of malignant neoplasm of bladder; Z99.81 Dependence on supplemental oxygen; Z68.32 Body mass index [BMI] 32.0-32.9, adult; I45.10 Unspecified right bundle-branch block; Z90.79 Acquired absence of other genital organ(s); Z88.1 Allergy status to other antibiotic agents; Z11.52 Encounter for screening for COVID-19
CPT/HCPCS: 70450; 71046; 72050; 73030; 73502; 80053; 80061; 81003; 81015; 82962; 83036; 83880; 84484; 85018; 85025; 85610; 87502; 87811; 93005; 96360; 96361; 97162; 97166; 99285; G0378

== ENCOUNTER → 2024-02-08 17:01 | Outpatient (REF) | payer MEDICARE, OTHER, SELFPAY ==
[2024-02-08 17:54] LABS: Blood Urea Nitrogen 27 mg/dl (9-20); Calcium 9.3 mg/dl (8.4-10.2); Carbon Dioxide 29 mmol/L (22-30); Chloride 100 mmol/L (98-107); Glucose 218 mg/dl (70-99); Potassium 4.3 mmol/L (3.5-5.1); Sodium 137 mmol/L (135-145); eGFR 58.89
== END ==
LOC: CLAB 17:01
PROVIDERS: ATTENDING PHYSICIAN Nurse Practitioner
DX: J98.11 Atelectasis (principal)
CPT/HCPCS: 36415; 80048

== ENCOUNTER → 2024-03-20 07:20 | Outpatient (REF) | payer MEDICARE, OTHER, SELFPAY ==
[2024-03-20 10:25] LABS: % Eosinophils 3.9 % (0-6); % Immature Granulocytes 0.3 % (0-0.5); % Lymphocytes 22.7 % (20.5-51.1); % Monocytes 7.5 % (1.7-9.3); % Neutrophils 64.6 % (42.2-75.2); Absolute Basophils 0.1 10^3/uL (0-0.2); Absolute Eosinophils 0.3 10^3/uL (0-0.7); Absolute Lymphocytes 1.7 10^3/uL (1.2-3.4); Absolute Monocytes 0.6 10^3/uL (0.1-0.6); Absolute Neutrophils 4.8 10^3/uL (1.4-6.5); Hematocrit 35.8 % (39.0-52.0); Hemoglobin 10.3 g/dL (13.0-18.0); Mean Corp Hgb Conc. 28.8 g/dL (33.0-37.0); Mean Corpuscular Hgb 22.5 pg (27.0-31.0); Mean Corpuscular Volume 78.2 fL (80.0-94.0); Mean Platelet Volume 10.4 fL (7.4-10.4); Nucleated Red Blood Cells % 0 % (-); Platelet Count 280 10^3/uL (130-400); Red Blood Cell Count 4.58 10^6/uL (4.70-6.10); Red Cell Dist. Width 16.5 % (11.5-14.5); White Blood Cell Count 7.4 10^3/uL (4.8-10.8)
[2024-03-20 10:54] LABS: ALT (SGPT) 13 U/L (0-50); AST (SGOT) 24 U/L (17-59); Albumin 3.5 g/dl (3.5-5.0); Alkaline Phosphatase 80 U/L (38-126); Blood Urea Nitrogen 29 mg/dl (9-20); Calcium 9.2 mg/dl (8.4-10.2); Carbon Dioxide 27 mmol/L (22-30); Chloride 102 mmol/L (98-107); Glucose 229 mg/dl (70-99); HDL Cholesterol 37 mg/dl; LDL Cholesterol, Calculated 51 mg/dl; Potassium 4.1 mmol/L (3.5-5.1); Sodium 140 mmol/L (135-145); Total Bilirubin 0.6 mg/dl (0.2-1.3); Total Cholesterol 112 mg/dl (50-199); Total Protein 6.5 g/dl (6.3-8.2); Triglyceride 122 mg/dl (10-149); Very Low Density Lipoprotein 24 mg/dl (0-30); eGFR 53.17
[2024-03-20 11:04] LABS: TSH 0.92 uIU/ml (0.47-4.68)
[2024-03-20 11:07] LABS: Anisocytosis 1+; Normal RBC Morphology No; Ovalocytes Slight; Polychromasia Slight
[2024-03-20 11:50] LABS: Glycohemoglobin (HgbA1c) 7.8 % (4.0-5.6)
== END ==
LOC: HWLAB 07:20
PROVIDERS: ATTENDING PHYSICIAN Nurse Practitioner
DX: I48.0 Paroxysmal atrial fibrillation (principal); I10 Essential (primary) hypertension; E11.9 Type 2 diabetes mellitus without complications; N18.9 Chronic kidney disease, unspecified; E03.9 Hypothyroidism, unspecified; Z68.32 Body mass index [BMI] 32.0-32.9, adult
CPT/HCPCS: 36415; 80053; 80061; 83036; 84443; 85025

== ENCOUNTER → 2024-04-08 09:02 | Outpatient (REF) | payer MEDICARE, OTHER, SELFPAY ==
[2024-04-08 11:38] LABS: Iron 41 ug/dl (49-181)
[2024-04-08 11:40] LABS: % Basophils 0.9 % (0-2); % Immature Granulocytes 0.4 % (0-0.5); % Lymphocytes 24.4 % (20.5-51.1); % Monocytes 7.3 % (1.7-9.3); Absolute Basophils 0.1 10^3/uL (0-0.2); Absolute Eosinophils 0.3 10^3/uL (0-0.7); Absolute Lymphocytes 1.8 10^3/uL (1.2-3.4); Absolute Monocytes 0.5 10^3/uL (0.1-0.6); Absolute Neutrophils 4.7 10^3/uL (1.4-6.5); Hematocrit 36.5 % (39.0-52.0); Hemoglobin 10.3 g/dL (13.0-18.0); Mean Corp Hgb Conc. 28.2 g/dL (33.0-37.0); Mean Corpuscular Hgb 21.9 pg (27.0-31.0); Mean Corpuscular Volume 77.5 fL (80.0-94.0); Mean Platelet Volume 10.4 fL (7.4-10.4); Nucleated Red Blood Cells % 0 % (-); Platelet Count 295 10^3/uL (130-400); Red Blood Cell Count 4.71 10^6/uL (4.70-6.10); White Blood Cell Count 7.4 10^3/uL (4.8-10.8)
[2024-04-08 11:48] LABS: Percent Saturation 10 % (20-50); Total Iron Binding Capacity 390 ug/dl (261-462)
[2024-04-08 12:15] LABS: Ferritin 5.5 ng/ml (17.9-464.0)
[2024-04-08 12:24] LABS: Anisocytosis 1+; Normal RBC Morphology No
[2024-04-08 12:25] LABS: Ovalocytes 1+
[2024-04-08 12:30] LABS: Vitamin B12 277 pg/ml (239-931)
== END ==
LOC: HWLAB 09:02
PROVIDERS: ATTENDING PHYSICIAN Nurse Practitioner
DX: R09.02 Hypoxemia (principal); D64.9 Anemia, unspecified; Z85.51 Personal history of malignant neoplasm of bladder
CPT/HCPCS: 36415; 82607; 82728; 83540; 83550; 85025

== ENCOUNTER → 2024-05-09 09:46 | Outpatient (REF) | payer MEDICARE, OTHER, SELFPAY ==
[2024-05-09 12:30] LABS: % Basophils 0.9 % (0-2); % Eosinophils 2.9 % (0-6); % Immature Granulocytes 0.3 % (0-0.5); % Lymphocytes 28.1 % (20.5-51.1); % Monocytes 8.9 % (1.7-9.3); % Neutrophils 58.9 % (42.2-75.2); Absolute Basophils 0.1 10^3/uL (0-0.2); Absolute Eosinophils 0.2 10^3/uL (0-0.7); Absolute Lymphocytes 2.1 10^3/uL (1.2-3.4); Absolute Monocytes 0.7 10^3/uL (0.1-0.6); Absolute Neutrophils 4.4 10^3/uL (1.4-6.5); Hematocrit 40.1 % (39.0-52.0); Hemoglobin 12.1 g/dL (13.0-18.0); Mean Corp Hgb Conc. 30.2 g/dL (33.0-37.0); Mean Corpuscular Hgb 24.7 pg (27.0-31.0); Mean Corpuscular Volume 81.8 fL (80.0-94.0); Mean Platelet Volume 10.6 fL (7.4-10.4); Nucleated Red Blood Cells % 0 % (-); Platelet Count 251 10^3/uL (130-400); Red Cell Dist. Width 23.1 % (11.5-14.5); White Blood Cell Count 7.5 10^3/uL (4.8-10.8)
[2024-05-09 12:58] LABS: Iron 290 ug/dl (49-181)
[2024-05-09 13:07] LABS: Percent Saturation 89 % (20-50); Total Iron Binding Capacity 323 ug/dl (261-462)
[2024-05-09 13:53] LABS: Ferritin 15.3 ng/ml (17.9-464.0)
[2024-05-09 14:41] LABS: Anisocytosis 1+; Hypochromasia 3+; Microcytosis 2+; Normal RBC Morphology No
== END ==
LOC: HWLAB 09:46
PROVIDERS: ATTENDING PHYSICIAN Nurse Practitioner
DX: D50.0 Iron deficiency anemia secondary to blood loss (chronic) (principal)
CPT/HCPCS: 36415; 82728; 83540; 83550; 85025

== ENCOUNTER → 2024-06-18 08:08 | Outpatient (REF) | payer MEDICARE, OTHER, SELFPAY ==
[2024-06-18 09:41] LABS: % Basophils 0.9 % (0-2); % Eosinophils 4.1 % (0-6); % Immature Granulocytes 0.1 % (0-0.5); % Lymphocytes 23.6 % (20.5-51.1); % Neutrophils 64.3 % (42.2-75.2); Absolute Basophils 0.1 10^3/uL (0-0.2); Absolute Eosinophils 0.3 10^3/uL (0-0.7); Absolute Lymphocytes 1.8 10^3/uL (1.2-3.4); Absolute Monocytes 0.5 10^3/uL (0.1-0.6); Hematocrit 40.9 % (39.0-52.0); Hemoglobin 12.8 g/dL (13.0-18.0); Mean Corp Hgb Conc. 31.3 g/dL (33.0-37.0); Mean Corpuscular Hgb 26.6 pg (27.0-31.0); Mean Corpuscular Volume 84.9 fL (80.0-94.0); Mean Platelet Volume 10.3 fL (7.4-10.4); Nucleated Red Blood Cells % 0 % (-); Platelet Count 230 10^3/uL (130-400); Red Blood Cell Count 4.82 10^6/uL (4.70-6.10); Red Cell Dist. Width 18.2 % (11.5-14.5); White Blood Cell Count 7.8 10^3/uL (4.8-10.8)
[2024-06-18 10:55] LABS: Glycohemoglobin (HgbA1c) 7.2 % (4.0-5.6)
[2024-06-18 10:56] LABS: ALT (SGPT) 16 U/L (0-50); AST (SGOT) 25 U/L (17-59); Albumin 3.6 g/dl (3.5-5.0); Alkaline Phosphatase 79 U/L (38-126); Blood Urea Nitrogen 29 mg/dl (9-20); Carbon Dioxide 33 mmol/L (22-30); Chloride 100 mmol/L (98-107); Glucose 178 mg/dl (70-99); Iron 58 ug/dl (49-181); Potassium 4.3 mmol/L (3.5-5.1); Sodium 142 mmol/L (135-145); Total Bilirubin 0.5 mg/dl (0.2-1.3); Total Protein 6.4 g/dl (6.3-8.2); eGFR > 60.00
[2024-06-18 11:06] LABS: Percent Saturation 19 % (20-50); Total Iron Binding Capacity 294 ug/dl (261-462)
[2024-06-18 11:36] LABS: Ferritin 13.4 ng/ml (17.9-464.0)
[2024-06-18 12:07] LABS: Folate 6.9 ng/ml (2.76-20)
== END ==
LOC: HWLAB 08:08
PROVIDERS: ATTENDING PHYSICIAN Nurse Practitioner
DX: E11.9 Type 2 diabetes mellitus without complications (principal); R53.83 Other fatigue; E61.1 Iron deficiency; D64.9 Anemia, unspecified
CPT/HCPCS: 36415; 80053; 82728; 82746; 83036; 83540; 83550; 85025

== ENCOUNTER → 2024-07-10 13:50 | Outpatient (REF) | payer MEDICARE, OTHER, SELFPAY | LOC: CLAB 13:50 | PROVIDERS: ATTENDING PHYSICIAN Urology | DX: R33.9 Retention of urine, unspecified (principal) | CPT/HCPCS: 88112 ==

== ENCOUNTER → 2024-09-17 07:28 | Outpatient (REF) | payer MEDICARE, OTHER, SELFPAY ==
[2024-09-17 09:43] LABS: % Basophils 0.8 % (0-2); % Immature Granulocytes 0.3 % (0-0.5); % Lymphocytes 21.8 % (20.5-51.1); % Neutrophils 67.1 % (42.2-75.2); Absolute Basophils 0.1 10^3/uL (0-0.2); Absolute Eosinophils 0.2 10^3/uL (0-0.7); Absolute Lymphocytes 1.6 10^3/uL (1.2-3.4); Absolute Monocytes 0.5 10^3/uL (0.1-0.6); Absolute Neutrophils 4.9 10^3/uL (1.4-6.5); Hematocrit 41.1 % (39.0-52.0); Hemoglobin 13.4 g/dL (13.0-18.0); Mean Corp Hgb Conc. 32.6 g/dL (33.0-37.0); Mean Corpuscular Hgb 29.2 pg (27.0-31.0); Mean Corpuscular Volume 89.5 fL (80.0-94.0); Mean Platelet Volume 10.6 fL (7.4-10.4); Nucleated Red Blood Cells % 0 % (-); Platelet Count 210 10^3/uL (130-400); Red Blood Cell Count 4.59 10^6/uL (4.70-6.10); Red Cell Dist. Width 14.7 % (11.5-14.5); White Blood Cell Count 7.3 10^3/uL (4.8-10.8)
[2024-09-17 10:02] LABS: Glycohemoglobin (HgbA1c) 7.5 % (4.0-5.6)
[2024-09-17 10:12] LABS: ALT (SGPT) 14 U/L (0-50); AST (SGOT) 17 U/L (17-59); Albumin 3.7 g/dl (3.5-5.0); Alkaline Phosphatase 82 U/L (38-126); Blood Urea Nitrogen 32 mg/dl (9-20); Calcium 8.9 mg/dl (8.4-10.2); Carbon Dioxide 31 mmol/L (22-30); Chloride 100 mmol/L (98-107); Glucose 265 mg/dl (70-99); Iron 52 ug/dl (49-181); Sodium 143 mmol/L (135-145); Total Bilirubin 0.5 mg/dl (0.2-1.3); Total Protein 6.4 g/dl (6.3-8.2); eGFR 58.53
[2024-09-17 10:21] LABS: Percent Saturation 17 % (20-50); Total Iron Binding Capacity 292 ug/dl (261-462)
[2024-09-17 10:44] LABS: Ferritin 19.2 ng/ml (17.9-464.0)
== END ==
LOC: HWLAB 07:28
PROVIDERS: ATTENDING PHYSICIAN Nuclear Medicine Nuclear Cardiology; FAMILY PHYSICIAN Nurse Practitioner
DX: E11.9 Type 2 diabetes mellitus without complications (principal); R53.83 Other fatigue; E61.1 Iron deficiency; D64.9 Anemia, unspecified; I10 Essential (primary) hypertension; I48.0 Paroxysmal atrial fibrillation
CPT/HCPCS: 36415; 71046; 80053; 82728; 83036; 83540; 83550; 85025

== ENCOUNTER → 2024-10-29 09:16 | Outpatient (REF) | payer MEDICARE, OTHER, SELFPAY | LOC: HWRCS 09:16 | PROVIDERS: ATTENDING PHYSICIAN Nuclear Medicine Nuclear Cardiology; FAMILY PHYSICIAN Internal Medicine | DX: I10 Essential (primary) hypertension (principal); I48.0 Paroxysmal atrial fibrillation | CPT/HCPCS: 93306 ==

== ENCOUNTER 2024-11-17 15:20 | Day surgery (SDC) | payer MEDICARE, OTHER, SELFPAY ==
[2024-11-17] VITALS (14 sets, daily range): BP systolic 128–159; BP diastolic 48–71
[2024-11-17 09:26] LABS: Glucose - Point of Care 194 mg/dl (70-99)
--- NOTE | 2024-11-17 09:26 | ED.GENMED ---
History of Present Illness
General
Chief Complaint: Heart Rate Problem
Source: patient
Exam Limitations: none
Time Seen by Provider: 11/17/24 09:11
History of Present Illness
History of Present Illness:
See MDM
Past History
Past History
ED Past Medical History: Arrthythmia, Cancer, HTN, Hypercholesterolemia, IDDM and Other
ED Past Surgical History: Orthopedic (Hip replacement, knee replacement) and Urological (Cystoscopy for bladder cancer removal)
Social History
Tobacco: Non-smoker
Alcohol: None
Personal:
Living: with family
Employment: Retired
Family History
Family History: Other (Noncontributory)
Phy Exam
Physical Exam
Physical Exam:
See MDM
Course
Orders/Labs/Results
Orders:
Orders
11/17/24 Breakfast
NPO
Allow oral meds: No
Allow clear liquids: No
11/17/24 09:13
EKG [Electrocardiogram (*1)] Urgent
Reason for Study: Bradycardia / Tachycardia
11/17/24 09:14
EKG- Treatment ONCE
11/17/24 09:25
Consult Cardiology [CARDIOLOGY CONSULT] Urgent
Consulting Provider: Jem Chance
Was physician already notified: Yes
11/17/24 09:28
Complete Blood Count/With Diff Urgent
Comprehensive Metabolic Panel Urgent
Magnesium Urgent
PTT Urgent
Prothrombin Time Urgent
TSH Reflex To Free T4 Urgent
Troponin I Urgent
11/17/24 10:15
Aztreonam [Azactam] 2,000 mg IV PRE PROCEDURE ONE
Vancomycin [Vancocin] 1,000 mg 0.9% Sod Chloride 500 ml Irr [Nss Irrigation Bottle] 500 ml IRRIG CATH
Vancomycin [Vancocin] 1,500 mg 0.9% Sodium Chloride 500 ml [Nss] 500 ml IV PRE PROCEDURE
Vancomycin Surgical Prophylaxis Indication: Allergy: PCN or B-Lactam
Abnormal Lab Results
11/17/24 11/17/24
09: 09:28
RBC 4.67 L 10^6/uL
(4.70-6.10)
MCHC 31.9 L g/dL
(33.0-37.0)
Abs Immat Gran (auto) 0.1 H 10^3/uL
(0-0.05)
Absolute Neuts (auto) 6.8 H 10^3/uL
(1.4-6.5)
Absolute Monos (auto) 0.7 H 10^3/uL
(0.1-0.6)
Immature Gran % 0.6 H %
(0-0.5)
PT 16.7 H Sec
(11.4-14.6)
APTT 39.2 H Sec
(23.4-35.0)
Carbon Dioxide 33 H mmol/L
(22-30)
BUN 35 H mg/dl
(9-20)
Creatinine 1.7 H mg/dL
(0.7-1.3)
Glucose 187 H mg/dl
(70-99)
Total Protein 6.1 L g/dl
(6.3-8.2)
POC Glucose 194 H mg/dl
(70-99)
11/17/24 09:28
11/17/24 09:28
Vital Signs
Initial and Last Documented VS:
Initial Vital Signs
Temp Pulse Resp BP Pulse Ox
98.1 F 34 16 129/52 94
11/17/24 09:15 11/17/24 09:15 11/17/24 09:15 11/17/24 09:15 11/17/24 09:15
Last Documented Vital Signs
Temp Pulse Resp BP Pulse Ox
98.1 F 34 16 129/52 94
11/17/24 09:15 11/17/24 09:15 11/17/24 09:15 11/17/24 09:15 11/17/24 09:15
MDM/Problems Addressed
Differential Diagnosis Includes:
HPI and MDM Narrative:
89-year-old male presents for evaluation of low heart rate. Patient states he and his family check his vital signs every day. They were worried because his heart rate was in the 20s. Patient denying any chest pain or shortness of breath.
On arrival, patient is sitting in bed comfortably. His heart rate is ranging from 29-35. Patient is on a beta-melany. EKG is concerning to me for third-degree heart block. Cardiology made aware immediately. Patient placed on ZOLL pads
Physical exam
General: Lying in bed comfortably
HEENT: protecting airway. Mildly dry mucous membrane
Neck: appears supple
CV: No evidence of cyanosis. Significant bradycardia
Resp: No accessory muscle use
Abd: Non-distended
Extremities: No deformities
Neuro: alert
Psych: Normal affect
Skin: Intact
Problems Addressed including Acute and Chronic Conditions affecting care:
1. Bradycardia
Acuity: acute
Prognosis: unstable
Details: Initial concern for third-degree heart block. Cardiology made aware immediately. Patient placed on ZOLL pads
Updates
10:15 AM cardiology indicating that they are going to suggest pacemaker but requested hospitalist admission given comorbidities
Differential Diagnosis (but not limited to): Third-degree heart block, bradycardia secondary to beta-melany
Testing considered: Chest x-ray
Drug therapy (if applicable): OTC meds, please see d/c instruction regarding Rx drugs
Amount and/or Complexity of Data Reviewed
Clinical info obtained from: Patient
External data reviewed: N/A
Labs I independently reviewed (but not limited to): Creatinine
Radiology: N/A
Pulse Ox: not hypoxic
EKG independently reviewed: Bradycardia, left axis, no STEMI, concern for third-degree heart block
Front Office Associate: Bradycardia
Critical Care: The high probability of a clinically significant, sudden or life threatening deterioration of the cardiovascular system(s) required my full and direct attention, intervention and personal management. The aggregate critical care time
was 33 minutes. This time is in addition to time spent performing reported procedures but includes the following:
[x] Data Review and interpretation
[x] Patient assessment and monitoring of vital signs
[x] Documentation
[x] Medication orders and management
Risk of Complication:
Social Determinants of health: Good social support
Discussed with other providers: Seismic Observer, hospital
Escalation of Care includes Admit/Obs: Will admit with concern for third-degree heart block
Occasional wrong word or 'sound a like' substitutions may have occurred due to the inherent limitations of voice recognition software. Read the chart carefully and recognize, using context, where substitutions have occurred.
*Critical Care Note
Total Time (30-74mins, 75-104mins- exclusive of procedures): 33 min
ED Attending Note
-
Portions of this chart may have been created with voice recognition software.� Occasional wrong word or��sound alike� substitutions may have occurred due to the inherent limitations of voice recognition software.
Discharge Plan
Departure
Patient Disposition: Admit
Date of Disposition: 11/17/24
Time of Disposition: 10:19
Admit to: Telemetry
Presentation/result/management discussed w/ accepting MD/DO: Hospitalist
Discharge Problem:
Third degree heart block
Prescriptions:
No Action
levothyroxine 175 MCG tablet
175 mcg PO DAILY
ergocalciferol (vitamin D2) 2,000 UNIT tablet
2,000 unit PO .2TIMES A WEEK
Patient Comments:
pt takes twice week
lisinopril 5 MG tablet
5 mg PO DAILY Qty: 30 0RF
amlodipine 5 MG tablet
5 mg PO QPM
tamsulosin 0.4 MG capsule
0.4 mg PO DAILY
metoprolol succinate 50 MG tablet extended release 24 hr
25 mg PO DAILY
Rx Instructions:
AT 1600
Myrbetriq 25 MG tablet extended release 24 hr
25 mg PO DAILY
Eliquis 2.5 MG tablet
2.5 mg PO BID Qty: 60 0RF
amiodarone
200 mg PO DAILY
Crestor
20 mg PO QHS
primidone 50 mg Tablet
50 mg PO HS
furosemide 20 mg Tablet
20 mg PO Q OTHER DAY
insulin aspart U-100 [Novolog FlexPen U-100 Insulin] 300 UNITS/3 ML insulin pen
20 unit SC AC
Patient Comments:
dose depends on blood sugar reading, averages 20 units
insulin glargine [Lantus Solostar U-100 Insulin] 300 UNITS/3 ML insulin pen
20 unit .Route BID
Patient Comments:
Pt took 18 Units of Lantus insulin
acetaminophen 325 mg Tablet
650 mg PO Q4HPRN PRN (Reason: mild pain/LARSEN/temp> 100.4F) Qty: 0 0RF
Referrals:
Za Hardin MD [Family Provider] -
Interventions
Interventions:
*Risk Screen - Suicide Last Done: 11/17/24 09:15
*General Assessment Last Done: 11/17/24 09:15
*Neglect/Abuse Screening Last Done: 11/17/24 09:15
ED- Fall Risk Assessment Last Done: 11/17/24 09:50
*ED COVID-19 Vaccine History Last Done: 11/17/24 09:50
ED- Cardiac Assessment Last Done: 11/17/24 09:50
ED- Pulmonary Assessment Last Done: 11/17/24 09:50
Discharge Date and Time
Print Language: SLOVAK
[2024-11-17 09:41] LABS: % Basophils 0.6 % (0-2); % Eosinophils 2.2 % (0-6); % Immature Granulocytes 0.6 % (0-0.5); % Lymphocytes 23.2 % (20.5-51.1); % Monocytes 6.5 % (1.7-9.3); % Neutrophils 66.9 % (42.2-75.2); Absolute Basophils 0.1 10^3/uL (0-0.2); Absolute Eosinophils 0.2 10^3/uL (0-0.7); Absolute Immature Granulocytes 0.1 10^3/uL (0-0.05); Absolute Lymphocytes 2.4 10^3/uL (1.2-3.4); Absolute Monocytes 0.7 10^3/uL (0.1-0.6); Absolute Neutrophils 6.8 10^3/uL (1.4-6.5); Hematocrit 42.3 % (39.0-52.0); Hemoglobin 13.5 g/dL (13.0-18.0); Mean Corp Hgb Conc. 31.9 g/dL (33.0-37.0); Mean Corpuscular Hgb 28.9 pg (27.0-31.0); Mean Corpuscular Volume 90.6 fL (80.0-94.0); Mean Platelet Volume 10.4 fL (7.4-10.4); Nucleated Red Blood Cells % 0 % (-); Platelet Count 240 10^3/uL (130-400); Red Blood Cell Count 4.67 10^6/uL (4.70-6.10); Red Cell Dist. Width 14.1 % (11.5-14.5); White Blood Cell Count 10.1 10^3/uL (4.8-10.8)
[2024-11-17 09:52] LABS: INR 1.32; PT 16.7 Sec (11.4-14.6)
[2024-11-17 09:53] LABS: APTT 39.2 Sec (23.4-35.0)
[2024-11-17 10:05] LABS: ALT (SGPT) 13 U/L (0-50); AST (SGOT) 18 U/L (17-59); Albumin 3.6 g/dl (3.5-5.0); Alkaline Phosphatase 72 U/L (38-126); Blood Urea Nitrogen 35 mg/dl (9-20); Calcium 8.9 mg/dl (8.4-10.2); Carbon Dioxide 33 mmol/L (22-30); Chloride 98 mmol/L (98-107); Estimated Creatinine Clearance 35 ml/min; Glucose 187 mg/dl (70-99); Sodium 140 mmol/L (135-145); Total Bilirubin 0.3 mg/dl (0.2-1.3); Total Protein 6.1 g/dl (6.3-8.2); eGFR 38.53
--- NOTE | 2024-11-17 10:12 | CON.CAR ---
Addendum entered and electronically signed by Woodrow Muro MD 11/17/24 14:10:
Patient seen, interviewed and examined by me, his and daughter are at the bedside to provide additional history.
He has been feeling dizzy and more tired particularly over the past day. Vital signs checked this morning by his daughter found that his heart rate was in the 30s. On presentation to the emergency department he is found to be in complete heart
block.
ECG November 17, 2024 reviewed by me finds sinus rhythm with complete heart block and a left bundle wide QRS complex escape at 31 bpm.
Prior ECG from February 02, 2024 finds sinus rhythm with right bundle branch block
He has a history of symptomatic paroxysmal atrial fibrillation requiring amiodarone for rhythm control.
Fatigued-appearing, no acute distress
Regular rate and rhythm, bradycardic with normal S1 and S2, no S3 no S4. There is a grade 1/6 apical holosystolic murmur and no rubs. PMI is normally placed.
Lungs are clear to auscultation bilaterally without wheezes rales or rhonchi.
Abdomen soft nontender nondistended with normoactive bowel sounds
Extremities show trace pretibial edema bilaterally no clubbing or cyanosis.
Neurologic exam is grossly nonfocal.
Symptomatic complete heart block with wide QRS complex escape. Likely related to underlying AV jennifer conduction system disease as well as background need for antiarrhythmic drug (amiodarone) as well as additional beta-melany for rate control for
treatment of symptomatic paroxysmal atrial fibrillation.
I had a detailed discussion with the patient, his and his daughter regarding his diagnosis of complete heart block and my recommendation for permanent pacemaker implantation given that he does have paroxysmal atrial fibrillation and does
require amiodarone as well as low-dose beta-melany for rhythm and rate control for symptomatic paroxysmal atrial fibrillation.
I discussed permanent pacemaker implantation in detail including possible risks.
All of his questions and his family's questions have been answered. Informed consent obtained by me.
We will plan for permanent pacemaker implantation later today (he ate scrambled eggs for breakfast and therefore anesthesia requires 6 hours of n.p.o.).
We will resume amiodarone 200 mg daily, Toprol-XL and Eliquis 2.5 mg twice daily once pacemaker has been successfully implanted.
Additionally he does present with acute on chronic kidney insufficiency likely related to poor perfusion from complete heart block of unknown duration.
Will plan for permanent pacemaker implantation and follow renal function closely.
Original Note:
Consultation
Consultation Request
Date/Time Consultation Requested: 11/17/24
Date/Time Consultation Performed: 11/17/24
Requesting Provider: Dr. Seun Johns in the ER
Performing Provider: Dr. Woodrow Muro
Reason for Consultation: Bradycardia
Medical History
-
History of Present Illness:
Patient came to ER today with complaints of feeling dizzy and was found to be in complete heart block. Patient lives at home with family including his daughter who is his primary caregiver and healthcare advocate. Patient apparently awoke in
his usual state of health, but when his daughter checked his VS this morning his heart rate was low. Patient was given his usual meds this morning including amiodarone 200 mg daily, Toprol XL 25 mg daily and Eliquis 2.5 mg twice daily among others.
Patient was then able to eat scrambled eggs for breakfast at about 8 AM and when he stood up to ambulate with his daughter for some exercise he began to feel dizzy and his HR remained low so his daughter called 911. In ER the patient was found
to be in CHB. He feels SOB, but no dizziness at rest. Denies any chest pain. Patient has a known history of paroxysmal A-fib and has generally maintained SR with amiodarone as noted. There is a somewhat remote history of LA in 2016 while he was
in [place] and and this happened in the setting of influenza, but he declined cardiac cath at that time and was managed medically including Toprol as noted above.
PMH:
cRBBB
Paroxysmal Afib
Chronic Eliquis OAC, last dose 11/17/24 AM
Chronic amiodarone therapy, last dose 11/17/24 AM
CAD with prior [place] that was treated medically as declined cath in [place] 2015
Hypertension
CKD stage 3a, baseline Cre 1.2
Diabetes type 2
Hyperlipidemia
Obstructive sleep apnea
Recurrent bladder cancer s/p cystoscopy and bladder tumor resection 09/28/21
Past Medical History
Past Medical History: Other (in HPI)
Past Surgical History: Cholecystectomy, Orthopedic and Urological
Social History
Tobacco: Non-Smoker
Alcohol: None
Drug: None
Personal: Other
Living: Other (lives independently with his daughter helping as his healthcare advocate)
Employment: Retired
Family History
Family History: Diabetes and Other (CVA)
Allergies / Home Medications
Allergy/AdvReac Type Severity Reaction Status Date / Time
cephalexin [From Keflex] Allergy Rash. Verified 11/17/24 09:15
Tolerated
amoxicillin
�Medication �Instructions �Recorded �Confirmed �Type
ergocalciferol (vitamin D2) 50 mcg 2,000 unit PO .2TIMES A WEEK 05/30/19 02/03/24 History
(2,000 unit) tablet Supplement
levothyroxine 175 mcg tablet 175 mcg PO DAILY Thyroid 05/30/19 02/03/24 History
lisinopril 5 mg tablet 5 mg PO DAILY #30 tabs 06/06/19 02/03/24 Rx
amlodipine 5 mg tablet 5 mg PO QPM Blood Pressure 06/20/21 02/03/24 History
tamsulosin 0.4 mg capsule 0.4 mg PO DAILY Urinary issue 06/20/21 02/03/24 History
metoprolol succinate 50 mg 25 mg PO DAILY Blood pressure 12/20/21 02/03/24 History
tablet,extended release 24 hr
mirabegron 25 mg tablet,extended 25 mg PO DAILY Urinary issue 12/20/21 02/03/24 History
release 24 hr (Myrbetriq)
apixaban 2.5 mg tablet (Eliquis) 2.5 mg PO BID #60 tabs 04/18/22 02/03/24 Rx
Crestor 20 mg PO QHS High cholesterol 09/22/22 02/03/24 History
amiodarone 200 mg PO DAILY Arrhythmia 09/22/22 02/03/24 History
furosemide 20 mg tablet 20 mg PO Q OTHER DAY Blood Pressure 02/02/24 02/03/24 History
insulin aspart U-100 100 unit/mL 20 unit SC AC Diabetes 02/02/24 02/03/24 History
(3 mL) subcutaneous pen (Novolog
FlexPen U-100 Insulin aspart)
insulin glargine 100 unit/mL (3 20 unit .Route BID Diabetes 02/02/24 02/03/24 History
mL) subcutaneous pen (Lantus
Solostar U-100 Insulin)
primidone 50 mg tablet 50 mg PO HS TREMORS 02/02/24 02/03/24 History
acetaminophen 325 mg tablet 650 mg (2 x 325 mg) PO Q4HPRN PRN 02/04/24 Rx
mild pain/LARSEN/temp> 100.4F #0 tabs
Review of Systems
-
History Source: Patient and Family (daughter and sitting bedside and helping with HPI)
All other systems: Negative unless noted
Physical Exam
Vital Signs
Temp Pulse Resp BP Pulse Ox
98.1 F 34 16 129/52 94
11/17/24 09:15 11/17/24 09:15 11/17/24 09:15 11/17/24 09:15 11/17/24 09:15
GEN: NAD. AAOx3
HEENT: EOMI, MMM
LUNGS: 2 L NC. CTA anterolaterally without wheeze
CV: Complete heart block on tele. Reg and slow, S1/S2, 1/6 syst LSB
ABD: soft, BS+, NT, ND
EXT: No clubbing, cyanosis, lesions or edema B/L
NEURO: Gross non-focal
SKIN: Warm, dry and pink. No rash
Lab Results
11/17/24 09:28
11/17/24 09:28
Impression / Plan
-
PCP: Dr. Kline
Primary Pharmacist In Charge: Dr. Chance
Impression:
Admitted from [facility] with dizziness and complete heart block 11/17/24
Complete heart block 11/17/24
cRBBB
Paroxysmal Afib
Chronic Eliquis OAC, last dose 11/17/24 AM
Chronic amiodarone therapy, last dose 11/17/24 AM
CAD with prior LA that was treated medically as declined cath in [place] 2015
Hypertension
RAE on CKD stage 3a
Diabetes type 2
Hyperlipidemia
Obstructive sleep apnea
Recurrent bladder cancer s/p cystoscopy and bladder tumor resection 09/28/21
Lexiscan nuclear stress test 06/13/2021: Small to medium area of mild to moderately decreased perfusion predominantly reversible and apical anterior, apical lateral segment consistent with infarction with residual ischemia, functional imaging with
normal contractility, EF 63%, no significant change compared to prior study
ECHO 05/2019: TDS, EF 55%, isolated apical akinesis, no significant valvular disease
Echo 11/29/2023: EF 55 to 60% with mild conc LVH in the apical segment appears akinetic, stage II diastolic dysfunction, normal RV size and function, mild peak/mean 33/24 mmHg and an KAELA of 2.1 cm SQ with mild aortic regurgitation, dilated sinus of
Valsalva 4 cm, sinotubular junction 3.6 cm and ascending aorta 4.5 cm with aortic arch normal in caliber and atherosclerotic plaque in the aortic arch compared to echo 01/03/2023 the AV gradients are higher in the ascending aorta is more dilated
Plan:
-Patient came to ER today with complaints of feeling dizzy and was found to be in complete heart block. Patient lives at home with family including his daughter who is his primary caregiver and healthcare advocate. Patient apparently awoke in
his usual state of health, but when his daughter checked his VS this morning his heart rate was low. Patient was given his usual meds this morning including amiodarone 200 mg daily, Toprol XL 25 mg daily and Eliquis 2.5 mg twice daily among others.
Patient was then able to eat scrambled eggs for breakfast at about 8 AM and when he stood up to ambulate with his daughter for some exercise he began to feel dizzy and his HR remained low so his daughter called 911. In [facility] ER the patient was found
to be in CHB. He feels SOB, but no dizziness at rest. Denies any chest pain. Patient has a known history of paroxysmal A-fib and has generally maintained SR with amiodarone as noted. There is a somewhat remote history of LA in 2016 while he was
in [place] and and this happened in the setting of influenza, but he declined cardiac cath at that time and was managed medically including Toprol as noted above.
-ECG reviewed by me looks like complete heart block with AV dissociation. Tele looks like CHB.
-Patient just had echo 11/29/2023 and EF was preserved with mild at that time, no need to repeat acutely
-Will plan on PPM today. Talked with patient, and daughter about risks vs benefits of PPM placement. Reviewed activity limitations post-PPM and general questions of battery longevity future ability to have MRI etc.
-Patient ate scrambled eggs for breakfast at 08 100 so we will defer PPM until after 1400 today
-Patient has an allergy to Keflex so we will adjust preop antibiotics. Of note he previously tolerated amoxicillin without adverse event
-RAE on CKD 3 with CRE up to 1.7 in the ER. This could be related to CHB, repeat BMP in a.m. He already received his usual dose of lisinopril 5 mg a.m. today along with Lasix, would recommend that those be held in the a.m. as well. Cre was 1.2 on
outpatient labs 09/17/24.
-Patient with history of paroxysmal A-fib, but most recently has been maintaining SR. Would continue amiodarone 200 mg daily once PPM is in place.
-Patient took his usual dose of Eliquis 2.5 mg BID (age 89, wt 96 kg, Cre 1.7) this AM
[2024-11-17 10:17] LABS: Troponin I 0.022 ng/ml
[2024-11-17] MEDS: VANCOCIN 530 MG IV (13:40)
[2024-11-17] MEDS: STERILE WATER FOR INJECTION 10 ML IV (14:00)
[2024-11-17] MEDS: AZACTAM 2000 MG IV (14:00)
--- NOTE | 2024-11-17 14:10 | ITS.CL.PACE ---
Er [facility] - Pacemaker Implant
Pacemaker Implant
Procedure Report:
PACEMAKER IMPLANT REPORT
Primary Care Physician: Dr. Jose Antonio Kline
Primary Heel Gouger: Dr. Jem Chance
Date of Procedure: November 17, 2024
Procedure:
Indication/Diagnosis:
Non-reversible symptomatic bradycardia due to third degree atrioventricular block
HISTORY:
Symptomatic complete heart block
After informed consent was obtained, 'time out' was called and confirmed, the patient was prepped and draped in a sterile fashion. Lidocaine with epi was used for local anesthesia.
Preferences for left-sided implantation given that patient is right-handed. 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
lead particularly in the setting of complete heart block. Therefore venogram was performed of the right sided central venous system which demonstrates typical anatomy with venous drainage into the superior vena cava. Therefore decision was made to
attempt implantation from the right chest.
Central venous access was obtained via subclavian venipuncture. An incision was made along the right chest and a pre-pectoral pocket was formed. Using a Seldinger technique and peel-away sheaths, the pacing leads were placed under fluoroscopic
guidance.
Fluoroscopy was used to determine likely anatomic site for left bundle branch pacing. The Medtronic C315 sheath was used to deliver the Medtronic 3830 Selectsecure pacing lead with the helix exposed just exposed from the sheath tip during continuous
monitoring when pacemapping the septum during gentle clockwise rotation to obtain a paced QRS morphology of a W pattern in lead V1. Once the suspected optimal site was identified, lead deployment was performed with several rapid rotations as paced
QRS morphology was intermittently monitored until a paced QRS complex in lead V1 demonstrated development of an R wave Qr.
Unipolar pacing impedance dropped by approximately 100 ohms suggesting it had reached the left ventricular subendocardial.
Stable VEgm injury current is present throughout final lead position including at end of case, suggesting there was no perforation through the septum into the LV cavity.
Unipolar pacing impedance is 1000 Ohms
Unipolar pacing threshold is stable at 1 V @ 0.4 ms.
Final conduction system paced QRS complex duration is 128 ms
Right atrial lead was placed at the RAA.
Once testing (see below) showed adequate and stable function, the leads were secured using the suture sleeves. The pocket was liberally irrigated with antibiotic solution. The leads were connected to the generator header and the leads and
generator were placed within the pocket. The pacemaker generator was secured to the pectoral fascia with suture. The pocket was closed in the typical fashion. Estimated blood loss 10 cc
IMPLANTS:
Medtronic [id number], SN: [id number], Left Pectoral
RA: Medtronic 5076-45, SN: [id number], RAA
Left Bundle: Medtronic 3830 , SN:[id number], Interventricular septum at LBB
DEVICE TESTING:
Sensing: RA 2.3 mV, RV no escape rhythm
Capture: RA 1 V@0.4ms, RV 1 V@0.4ms
Ohms: RA 817, RV 874 (bipolar)
FINAL PROGRAMMING
Chris Pacing: DDDR 60-130 ppm
COMPLICATIONS:
None
CONCLUSIONS:
Successful implant of dual chamber permanent pacemaker utilizing Left Bundle Branch conduction system capture for ventricular resynchronization pacing.
RECOMMENDATIONS:
1. Post-op care (tele, CXR, IV abx)
2. In-Office wound check in 5-7 days
Copy to:
Dr. Jose Antonio Kline
Dr. Jem Chance
[2024-11-17] MEDS: LIDOCAINE 4% PATCH 1 PATCH TOPICAL (16:28)
--- NOTE | 2024-11-17 16:36 | PTCARENOTE ---
patient arrived from labor operator, RCW pacemaker placed, Acuseal, pressure dsg. immobilizer on. patient is awake, voices no concerns of pain and only request is that patient wants to eat, dinner called in for him and water given. monitor shows V paced,
confirmed by post EKG, VSS. oriented to room and surroundings. family at bedside.
[2024-11-17 17:08] LABS: Glucose - Point of Care 144 mg/dl (70-99)
[2024-11-17] MEDS: NOVOLOG FLEXPEN-MODERATE RESISTANCE SC (17:52)
[2024-11-17] MEDS: NORVASC 5 MG PO (17:54)
[2024-11-17] MEDS: CRESTOR 20 MG PO (17:55)
--- NOTE | 2024-11-17 19:08 | PTCARENOTE ---
post chest xray completed.
[2024-11-17 20:38] LABS: Glucose - Point of Care 257 mg/dl (70-99)
[2024-11-17] MEDS: LANTUS 0.2 UNITS SC (20:38)
--- NOTE | 2024-11-17 22:14 | PTCARENOTE ---
Patient received at change of shift in the bed. Right anterior chest wall pressure dressing in place over PPM, C/D/I. Right arm immobilizer in place. Patient V-paced on the monitor. Patient initially on 5L NC, now on 4L NC with oxygen saturation
95%. Patient is without complaints at this time. Call thomason within reach. Bed in lowest position, wheels locked. Care ongoing.
[2024-11-17 22:17] LABS: Glucose - Point of Care 295 mg/dl (70-99)
[2024-11-18] MEDS: TOPROL XL 25 MG PO (00:03)
[2024-11-18] MEDS: MYSOLINE 50 MG PO (00:03)
[2024-11-18 03:25] VITALS: BP 136/65
[2024-11-18 04:35] LABS: Hematocrit 39.6 % (39.0-52.0); Mean Corp Hgb Conc. 32.8 g/dL (33.0-37.0); Mean Corpuscular Hgb 29.3 pg (27.0-31.0); Mean Corpuscular Volume 89.2 fL (80.0-94.0); Mean Platelet Volume 10.9 fL (7.4-10.4); Platelet Count 199 10^3/uL (130-400); Red Blood Cell Count 4.44 10^6/uL (4.70-6.10); White Blood Cell Count 8.7 10^3/uL (4.8-10.8)
[2024-11-18] MEDS: SYNTHROID 175 MCG PO (04:46)
[2024-11-18 05:07] LABS: Blood Urea Nitrogen 35 mg/dl (9-20); Calcium 8.8 mg/dl (8.4-10.2); Carbon Dioxide 29 mmol/L (22-30); Chloride 100 mmol/L (98-107); Estimated Creatinine Clearance 43 ml/min; Glucose 167 mg/dl (70-99); Potassium 3.7 mmol/L (3.5-5.1); Sodium 138 mmol/L (135-145); eGFR 48.65
[2024-11-18 07:25] LABS: Glucose - Point of Care 170 mg/dl (70-99)
[2024-11-18 08:34] VITALS: BP 153/63
[2024-11-18] MEDS: ELIQUIS 2.5 MG PO (09:14)
[2024-11-18] MEDS: PACERONE 200 MG PO (09:14)
[2024-11-18] MEDS: FLOMAX 0.4 MG PO (09:14)
[2024-11-18] MEDS: ZESTRIL 5 MG PO (09:15)
[2024-11-18] MEDS: ORETIC 12.5 MG PO (09:15)
[2024-11-18] MEDS: LIDOCAINE 4% PATCH 1 PATCH TOPICAL (09:15)
[2024-11-18] MEDS: LANTUS 0.2 UNITS SC (09:16)
[2024-11-18] MEDS: FLUSH (NSS) 2 FLUSH IV (09:16)
[2024-11-18] MEDS: NOVOLOG FLEXPEN-MODERATE RESISTANCE 1 UNITS SC (09:17)
--- NOTE | 2024-11-18 09:43 | W.PN.CARDCBS ---
Addendum entered and electronically signed by Douglas Mc MD 11/18/24 09:54:
I saw and examined the patient.
The ALUMNI RELATIONS COORDINATOR or PA's note was reviewed and I agree with the note.
Comment: General: Well developed, well nourished in NAD.
Neck: Supple, no JVD, HJR, carotids +2 B/L, no bruits bilaterally.
Heart: Non displaced PMI, RRR, no murmurs, No S3, S4, no rubs.
Lungs: Scattered rhonchi at the bases
Left pacer dressings noted
Extremities: No clubbing, cyanosis or edema bilaterally.
Neuro: Grossly nonfocal, awake, alert and oriented x3.
Stable cardiology status for discharge and follow-up will be arranged. Discharge time greater than 30-minute
Original Note:
Today's Communication / Plan
-
post PPM, stable for d/c home today
Impression / Plan
-
PCP: Dr. Kline
Primary Web Site Project Manager: Dr. Chance
Impression:
Admitted from [facility] with dizziness and complete heart block 11/17/24
Complete heart block 11/17/24
cRBBB
Paroxysmal Afib
Chronic Eliquis OAC, last dose 11/17/24 AM
Chronic amiodarone therapy, last dose 11/17/24 AM
CAD with prior [place] that was treated medically as declined cath in [place] 2015
Hypertension
RAE on CKD stage 3a
Diabetes type 2
Hyperlipidemia
Obstructive sleep apnea
Recurrent bladder cancer s/p cystoscopy and bladder tumor resection 09/28/21
Lexiscan nuclear stress test 06/13/2021: Small to medium area of mild to moderately decreased perfusion predominantly reversible and apical anterior, apical lateral segment consistent with infarction with residual ischemia, functional imaging with
normal contractility, EF 63%, no significant change compared to prior study
ECHO 05/2019: TDS, EF 55%, isolated apical akinesis, no significant valvular disease
Echo 11/29/2023: EF 55 to 60% with mild conc LVH in the apical segment appears akinetic, stage II diastolic dysfunction, normal RV size and function, mild peak/mean 33/24 mmHg and an KAELA of 2.1 cm SQ with mild aortic regurgitation, dilated sinus of
Valsalva 4 cm, sinotubular junction 3.6 cm and ascending aorta 4.5 cm with aortic arch normal in caliber and atherosclerotic plaque in the aortic arch compared to echo 01/03/2023 the AV gradients are higher in the ascending aorta is more dilated
Plan:
Post DC PPM Medtronic 11/17/24
site stable with small marked area of old drainage
tele AV dual paced
CXR no PTX, leads in appropriate position
Cr stable 1.4
Resume Eliquis this am
Continue amiodarone and metoprolol
Activity restrictions reviewed
Incision check 1 week
stable for d/c home today
Progress Note - Web Site Project Manager
Subjective
Date of Service: November 18, 2024
denies cp, sob, LH
Objective
Labs:
11/18/24 03:45
11/18/24 03:45
Labs
Hgb 13.0 g/dL (13.0-18.0) 11/18/24 03:45
Hct 39.6 % (39.0-52.0) 11/18/24 03:45
Plt Count 199 10^3/uL (130-400) 11/18/24 03:45
PT 16.7 Sec (11.4-14.6) H 11/17/24 09:28
INR 1.32 11/17/24 09:28
APTT 39.2 Sec (23.4-35.0) H 11/17/24 09:28
Sodium 138 mmol/L (135-145) 11/18/24 03:45
Potassium 3.7 mmol/L (3.5-5.1) 11/18/24 03:45
BUN 35 mg/dl (9-20) H 11/18/24 03:45
Creatinine 1.4 mg/dL (0.7-1.3) H 11/18/24 03:45
Glucose 167 mg/dl (70-99) H 11/18/24 03:45
Troponins
11/17/24
09:28
Troponin I 0.022
Vital Signs and I&O:
Vital Signs
Temp Pulse Resp BP Pulse Ox
97.5 F 60 20 136/65 97
11/18/24 08:38 11/18/24 04:00 11/18/24 08:38 11/18/24 03:25 11/18/24 08:38
Vital Signs
Temp Pulse Resp BP Pulse Ox
97.5 F 60 20 136/65 97
11/18/24 08:38 11/18/24 04:00 11/18/24 08:38 11/18/24 03:25 11/18/24 08:38
Intake & Output
11/16/24 11/17/24 11/18/24 11/19/24
06:59 06:59 06:59 06:59
Output Total 300 / 300
Balance -300 / -300
Physical Exam
Physical Exam
NAD, AOX3
S1, S2, RRR
CTAB, non labored, no wheeze
SNTND bsx4
R CW dressing with marked old drainage, pressure dressing removed, no HT
[2024-11-18] MEDS: LASIX 20 MG PO (10:15)
--- NOTE | 2024-11-18 10:54 | W.DS.TRANS ---
DC Summary - [employer]
-
Discharge Instructions:
Discharge Diagnosis/Procedures Heart block, s/p pacemaker implant
Diet Low Cholesterol,Diabetic, Carb Controlled
Driving Restrictions No driving for 1 week
Instructions:
Stand-Alone Forms: DC Inst - Implanted Device
Changes to Home Medications: No
Discharge Medications:
DC Medications w/original date entered in [employer]
ergocalciferol (vitamin D2) 50 mcg (2,000 unit) tablet 2,000 unit PO DE LUNA Supplement 05/30/19
levothyroxine 175 mcg tablet 175 mcg PO DAILY Thyroid 05/30/19
amlodipine 5 mg tablet 5 mg PO QPM Blood Pressure 06/20/21
tamsulosin 0.4 mg capsule 0.4 mg PO DAILY Urinary issue 06/20/21
amiodarone 200 mg tablet 200 mg PO DAILY Arrhythmia ##0 09/22/22
rosuvastatin 20 mg tablet (Crestor) 20 mg PO QPM High cholesterol ##0 09/22/22
furosemide 20 mg tablet 20 mg PO SUTUTHSA Fluid Retention/Swelling 02/02/24
insulin aspart U-100 100 unit/mL (3 mL) subcutaneous pen (Novolog FlexPen U-100 Insulin aspart) 20 unit SC AC Diabetes 02/02/24
insulin glargine 100 unit/mL (3 mL) subcutaneous pen (Lantus Solostar U-100 Insulin) 20 unit SC BID Diabetes 02/02/24
primidone 50 mg tablet 50 mg PO HS tremors 02/02/24
apixaban 2.5 mg tablet (Eliquis) 2.5 mg PO BID Blood Clot Prevention/Tx 11/17/24
cyanocobalamin (vitamin B-12) 1,000 mcg tablet 1,000 mcg PO DAILY Supplement 11/17/24
ferrous sulfate 325 mg (65 mg iron) tablet,delayed release 325 mg PO DAILY Supplement 11/17/24
hydrochlorothiazide 12.5 mg tablet 12.5 mg PO DAILY Blood Pressure 11/17/24
lidocaine 5 % topical patch 1 patch topical DAILYPRN PRN lower back 11/17/24
lisinopril 5 mg tablet 5 mg PO DAILY Blood Pressure 11/17/24
metoprolol succinate 25 mg tablet,extended release 24 hr (Toprol XL) 25 mg PO HS Blood Pressure 11/17/24
Home Medication Changes
Pending Results: Yes
Additional Pending Results:
A1c
--- NOTE | 2024-11-18 10:54 | PTCARENOTE ---
Received patient this morning sitting oob in the chair eating breakfast. Patient seen by cardiology, pressure dressing and immobilizer removed. Scant drainage noted and marked on aquacel dressing. Patient is cleared for discharge. Reviewed discharge
instructions, post op restrictions, medications and follow up appointments with the patient and his daughter and they state their understanding. Patient discharged home with his family.
--- NOTE | 2024-11-18 11:20 | CM ---
spoke to pt in room, he is prev indep, lives with his in a one story condo with no steps to enter. he has a scooter, rollator, WC and canes at home he uses. he denies any dc planning needs. plan is for dc to home with and daughter today.
[2024-11-18 11:32] LABS: Glycohemoglobin (HgbA1c) 7.8 % (4.0-5.6)
== END 2024-11-18 11:12 | disposition home or self-care (01) ==
LOC: CATH 15:20
PROVIDERS: Nurse Practitioner; ATTENDING PHYSICIAN Internal Medicine Cardiovascular Disease; CONSULT PHYSICIAN Nuclear Medicine Nuclear Cardiology; EMERGENCY PHYSICIAN Student in an Organized Health Care Education/Training Program; FAMILY PHYSICIAN Internal Medicine
DX: I44.2 Atrioventricular block, complete (principal); Z79.899 Other long term (current) drug therapy; I12.9 Hypertensive chronic kidney disease with stage 1 through stage 4 chronic kidney disease, or unspecified chronic kidney disease; Z90.49 Acquired absence of other specified parts of digestive tract; N18.31 Chronic kidney disease, stage 3a; I25.10 Atherosclerotic heart disease of native coronary artery without angina pectoris; I25.2 Old myocardial infarction; I48.0 Paroxysmal atrial fibrillation; I45.10 Unspecified right bundle-branch block; E11.22 Type 2 diabetes mellitus with diabetic chronic kidney disease; G47.33 Obstructive sleep apnea (adult) (pediatric); Z85.51 Personal history of malignant neoplasm of bladder; Z79.4 Long term (current) use of insulin; R00.1 Bradycardia, unspecified; E78.00 Pure hypercholesterolemia, unspecified; Z79.01 Long term (current) use of anticoagulants; Z83.49 Family history of other endocrine, nutritional and metabolic diseases
CPT/HCPCS: 33208; 71045; 80048; 80053; 82962; 83036; 83735; 84443; 84484; 85025; 85027; 85610; 85730; 93005; 96374; 96375; 99291; C1769; C1785; C1887; C1892; C1898; Q9967

== ENCOUNTER → 2024-12-25 08:53 | Outpatient (REF) | payer MEDICARE, OTHER, SELFPAY ==
[2024-12-25 13:11] LABS: % Eosinophils 3.1 % (0-6); % Immature Granulocytes 0.4 % (0-0.5); % Lymphocytes 25.8 % (20.5-51.1); % Monocytes 6.4 % (1.7-9.3); % Neutrophils 63.3 % (42.2-75.2); Absolute Basophils 0.1 10^3/uL (0-0.2); Absolute Eosinophils 0.3 10^3/uL (0-0.7); Absolute Lymphocytes 2.1 10^3/uL (1.2-3.4); Absolute Monocytes 0.5 10^3/uL (0.1-0.6); Hematocrit 45.6 % (39.0-52.0); Hemoglobin 14.2 g/dL (13.0-18.0); Mean Corp Hgb Conc. 31.1 g/dL (33.0-37.0); Mean Corpuscular Hgb 28.6 pg (27.0-31.0); Mean Corpuscular Volume 91.9 fL (80.0-94.0); Mean Platelet Volume 10.3 fL (7.4-10.4); Nucleated Red Blood Cells % 0 % (-); Platelet Count 231 10^3/uL (130-400); Red Blood Cell Count 4.96 10^6/uL (4.70-6.10); Red Cell Dist. Width 13.7 % (11.5-14.5)
[2024-12-25 13:13] LABS: ALT (SGPT) 14 U/L (0-50); AST (SGOT) 20 U/L (17-59); Albumin 3.8 g/dl (3.5-5.0); Alkaline Phosphatase 91 U/L (38-126); Blood Urea Nitrogen 26 mg/dl (9-20); Calcium 9.4 mg/dl (8.4-10.2); Carbon Dioxide 34 mmol/L (22-30); Chloride 99 mmol/L (98-107); Glucose 173 mg/dl (70-99); Iron 67 ug/dl (49-181); Sodium 140 mmol/L (135-145); Total Bilirubin 0.8 mg/dl (0.2-1.3); Total Protein 6.6 g/dl (6.3-8.2); eGFR > 60.00
[2024-12-25 13:37] LABS: Glycohemoglobin (HgbA1c) 7.8 % (4.0-5.6)
[2024-12-25 13:42] LABS: TSH 0.77 uIU/ml (0.47-4.68)
[2024-12-25 13:46] LABS: Ferritin 22.5 ng/ml (17.9-464.0)
[2024-12-25 14:01] LABS: Vitamin B12 930 pg/ml (239-931)
== END ==
LOC: HWLAB 08:53
PROVIDERS: ATTENDING PHYSICIAN Nurse Practitioner
DX: E03.9 Hypothyroidism, unspecified (principal); D64.9 Anemia, unspecified; R19.5 Other fecal abnormalities; I48.0 Paroxysmal atrial fibrillation; I10 Essential (primary) hypertension; E11.9 Type 2 diabetes mellitus without complications; N18.9 Chronic kidney disease, unspecified; E53.8 Deficiency of other specified B group vitamins
CPT/HCPCS: 36415; 80053; 82607; 82728; 83036; 83540; 84443; 85025

== ENCOUNTER → 2025-04-07 09:06 | Outpatient (REF) | payer MEDICARE, OTHER, SELFPAY ==
[2025-04-07 11:41] LABS: % Eosinophils 2.7 % (0-6); % Immature Granulocytes 0.1 % (0-0.5); % Lymphocytes 21.6 % (20.5-51.1); % Monocytes 6.8 % (1.7-9.3); % Neutrophils 67.8 % (42.2-75.2); Absolute Basophils 0.1 10^3/uL (0-0.2); Absolute Eosinophils 0.2 10^3/uL (0-0.7); Absolute Lymphocytes 1.8 10^3/uL (1.2-3.4); Absolute Monocytes 0.6 10^3/uL (0.1-0.6); Absolute Neutrophils 5.6 10^3/uL (1.4-6.5); Hematocrit 44.8 % (39.0-52.0); Hemoglobin 14.4 g/dL (13.0-18.0); Mean Corp Hgb Conc. 32.1 g/dL (33.0-37.0); Mean Corpuscular Hgb 28.5 pg (27.0-31.0); Mean Corpuscular Volume 88.5 fL (80.0-94.0); Mean Platelet Volume 10.3 fL (7.4-10.4); Nucleated Red Blood Cells % 0 % (-); Platelet Count 220 10^3/uL (130-400); Red Blood Cell Count 5.06 10^6/uL (4.70-6.10); White Blood Cell Count 8.3 10^3/uL (4.8-10.8)
[2025-04-07 11:58] LABS: ALT (SGPT) 12 U/L (0-50); AST (SGOT) 14 U/L (17-59); Albumin 3.7 g/dl (3.5-5.0); Alkaline Phosphatase 96 U/L (38-126); Blood Urea Nitrogen 37 mg/dl (9-20); Calcium 9.2 mg/dl (8.4-10.2); Carbon Dioxide 30 mmol/L (22-30); Chloride 105 mmol/L (98-107); Glucose 260 mg/dl (70-99); Potassium 3.8 mmol/L (3.5-5.1); Sodium 143 mmol/L (135-145); Total Bilirubin 0.5 mg/dl (0.2-1.3); Total Protein 6.5 g/dl (6.3-8.2); eGFR 52.84
== END ==
LOC: HWLAB 09:06
PROVIDERS: ATTENDING PHYSICIAN Nurse Practitioner; REFERRING PHYSICIAN Nuclear Medicine Nuclear Cardiology
DX: D64.9 Anemia, unspecified (principal); I10 Essential (primary) hypertension; E11.9 Type 2 diabetes mellitus without complications; R25.1 Tremor, unspecified
CPT/HCPCS: 36415; 80053; 83036; 85025

== ENCOUNTER → 2025-06-19 08:06 | Outpatient (REF) | payer MEDICARE, OTHER, SELFPAY ==
[2025-06-19 09:41] LABS: Hematocrit 45.0 % (39.0-52.0); Hemoglobin 14.6 g/dL (13.0-18.0); Mean Corp Hgb Conc. 32.4 g/dL (33.0-37.0); Mean Corpuscular Volume 89.8 fL (80.0-94.0); Nucleated Red Blood Cells % 0 % (-); Platelet Count 200 10^3/uL (130-400); Red Cell Dist. Width 13.9 % (11.5-14.5)
[2025-06-19 10:04] LABS: ALT (SGPT) 15 U/L (0-50); AST (SGOT) 19 U/L (17-59); Albumin 3.8 g/dl (3.5-5.0); Alkaline Phosphatase 91 U/L (38-126); Blood Urea Nitrogen 31 mg/dl (9-20); Calcium 9.2 mg/dl (8.4-10.2); Carbon Dioxide 34 mmol/L (22-30); Chloride 102 mmol/L (98-107); Glucose 215 mg/dl (70-99); HDL Cholesterol 35 mg/dl; LDL Cholesterol, Calculated 62 mg/dl; Potassium 3.7 mmol/L (3.5-5.1); Sodium 140 mmol/L (135-145); Total Protein 6.7 g/dl (6.3-8.2); Very Low Density Lipoprotein 29 mg/dl (0-30); eGFR 52.84
[2025-06-19 10:11] LABS: Glycohemoglobin (HgbA1c) 7.6 % (4.0-5.6)
[2025-06-19 10:32] LABS: TSH 0.52 uIU/ml (0.47-4.68)
[2025-06-19 10:51] LABS: Vitamin B12 927 pg/ml (239-931)
== END ==
LOC: HWLAB 08:06
PROVIDERS: ATTENDING PHYSICIAN Nurse Practitioner
DX: D64.9 Anemia, unspecified (principal); E11.9 Type 2 diabetes mellitus without complications; N18.9 Chronic kidney disease, unspecified; E03.9 Hypothyroidism, unspecified; E53.8 Deficiency of other specified B group vitamins; E66.9 Obesity, unspecified
CPT/HCPCS: 36415; 80053; 80061; 82607; 83036; 84443; 85025

== ENCOUNTER 2025-07-21 08:33 | Outpatient (RCR) | payer MEDICARE, OTHER, SELFPAY | END 2025-07-21 23:59 | disposition home or self-care (01) | LOC: RPT 08:33 | PROVIDERS: ATTENDING PHYSICIAN Nurse Practitioner | DX: R26.2 Difficulty in walking, not elsewhere classified (principal); R26.89 Other abnormalities of gait and mobility; Z73.6 Limitation of activities due to disability; R26.81 Unsteadiness on feet; R53.81 Other malaise; M54.50 Low back pain, unspecified; R29.3 Abnormal posture | CPT/HCPCS: 97110; 97162 ==

== ENCOUNTER 2025-08-20 14:02 | Outpatient (RCR) | payer MEDICARE, OTHER, SELFPAY | END 2025-08-20 23:59 | disposition home or self-care (01) | LOC: RPT 14:02 | PROVIDERS: ATTENDING PHYSICIAN Nurse Practitioner | DX: R53.81 Other malaise (principal); R26.89 Other abnormalities of gait and mobility; Z73.6 Limitation of activities due to disability; M62.81 Muscle weakness (generalized); M54.50 Low back pain, unspecified; R26.81 Unsteadiness on feet | CPT/HCPCS: 97110; 97112; 97530 ==

== ENCOUNTER 2025-09-16 09:38 | Outpatient (RCR) | payer MEDICARE, OTHER, SELFPAY | END 2025-09-16 23:59 | disposition home or self-care (01) | LOC: RPT 09:38 | PROVIDERS: ATTENDING PHYSICIAN Nurse Practitioner | DX: R26.89 Other abnormalities of gait and mobility (principal); R53.81 Other malaise; Z73.6 Limitation of activities due to disability; R26.2 Difficulty in walking, not elsewhere classified; M62.81 Muscle weakness (generalized) | CPT/HCPCS: 97110; 97530 ==

== ENCOUNTER 2025-09-28 15:07 | Outpatient (RCR) | payer MEDICARE, OTHER, SELFPAY | END 2025-09-29 12:00 | disposition home or self-care (01) | LOC: RPT 15:07 | PROVIDERS: ATTENDING PHYSICIAN Nurse Practitioner | DX: R26.89 Other abnormalities of gait and mobility (principal); R53.81 Other malaise; Z73.6 Limitation of activities due to disability; R26.2 Difficulty in walking, not elsewhere classified; M62.81 Muscle weakness (generalized) | CPT/HCPCS: 97110 ==